=== PATIENT | male | born 1935 | race Caucasian/White ===

== ENCOUNTER 2017-03-17 14:50 | Emergency (ER) | payer MEDICARE, BC ==
[2017-03-17 15:01] VITALS: BP 145/67
[2017-03-17] MEDS ORDERED: Diphtheria,Pertussis(Acell),Tetanus Vaccine 0.5 ML SDV IM ONE (15:23)
[2017-03-17] MEDS ORDERED: Lidocaine 1% 10 ML MDV INJECT ONE (15:23)
[2017-03-17] MEDS ORDERED: Lidocaine 1% 30 ML SDV INJECT ONE (15:25)
--- NOTE | 2017-03-17 15:26 | EDM.PDOC ---
ED HPI GENERAL MEDICAL PROBLEM - General Chief Complaint: Laceration Stated Complaint: CUT TO PINKY ON LEFT HAND Time Seen by Provider: 03/17/17 15:23 Source of Information: Reports: Patient History Limitations: Reports: No Limitations - History of Present Illness INITIAL COMMENTS - FREE TEXT/NARRATIVE: 81 yo male presents with laceration in between fourth and fifth digit on left hand. Bleeding controlled. No other complaints. Onset: Today Location: Reports: Upper Extremity, Left Quality: Reports: Ache Severity: Mild Improves with: Reports: None Worsens with: Reports: None Context: Reports: Activity Left Hand Pain Score (Numeric/FACES): 5 - Related Data Allergies Allergy/AdvReac Type Severity Reaction Status Date / Time acetaminophen [From Tylox] Allergy Nausea and Verified 03/17/17 14:56 Vomiting cephalexin Allergy Diarrhea Verified 03/17/17 14:56 codeine Allergy Anxiety Verified 03/17/17 14:56 levofloxacin [From Levaquin] Allergy Hyperactivi Verified 03/17/17 14:56 ty oxycodone Allergy Rash Verified 03/17/17 14:56 Penicillins Allergy Rash Verified 03/17/17 14:56 Sulfa (Sulfonamide Allergy Blurred Verified 03/17/17 14:56 Antibiotics) Vision tramadol [From Ultram] Allergy Blurred Verified 03/17/17 14:56 Vision Home Meds: Home Meds Bisoprolol Fumarate/HCTZ [Ziac 2.5-6.25 MG] 1 tab PO BID 09/21/16 [History] Lisinopril 5 mg PO DAILY 09/21/16 [History] atorvaSTATin [Lipitor] 10 mg PO BID 09/21/16 [History] Past Medical History HEENT History: Reports: Impaired Vision Cardiovascular History: Reports: High Cholesterol, Hypertension - Past Surgical History Musculoskeletal Surgical History: Reports: Knee Replacement, Shoulder Replacement, Other (See Below) Social & Family History - Family History Family Medical History: Noncontributory - Tobacco Use Smoking Status *Q: Never Smoker Second Hand Smoke Exposure: No - Caffeine Use Caffeine Use: Reports: Coffee - Recreational Drug Use Recreational Drug Use: No ED ROS GENERAL - Review of Systems Review Of Systems: ROS reveals no pertinent complaints other than HPI. ED EXAM, SKIN/RASH Exam: See Below Exam Limited By: No Limitations General Appearance: Alert, WD/WN, No Apparent Distress Respiratory/Chest: No Respiratory Distress, Lungs Clear, Normal Breath Sounds, No Accessory Muscle Use, Chest Non-Tender Neurological: Alert, Oriented, Normal Cognition, Normal Gait, Normal Reflexes, No Motor/Sensory Deficits Skin: Warm, Dry, No Rash, Ecchymosis, Wound/Incision (2 cm laceration hager between 4th and 5th digit) Location, Skin: Palms Characteristics: Linear ED SKIN PROCEDURES - Laceration/Wound Repair Left Hand Appearance: Subcutaneous Distal NVT: Neuro & Vascular Intact Anesthetic Type: Local Local Anesthesia - Lidocaine (Xylocaine): 1% Plain Local Anesthetic Volume: Other (6cc) Skin Prep: Chlorhexidine (Hibiciens) Saline Irrigation (cc's): 30 Suture Size: 4-0 Suture Type: Interrupted, Simple Suture Size: 4-0 Repaired with: Vicryl Drain Placement: No Sterile Dressing Applied: None Tetanus Status Addressed: Yes Complications: No Course - Vital Signs Last Recorded V/S: Last Vital Signs Temp 97.7 F 03/17/17 14:58 Pulse 62 03/17/17 14:58 Resp 18 03/17/17 14:58 BP 145/67 H 03/17/17 14:58 Pulse Ox 98 03/17/17 14:58 - Orders/Labs/Meds Orders: Active Orders 24 hr Category Date Time Status Vaccines to be Administered [RC] PER UNIT ROUTINE Care 03/17/17 15:23 Active Meds: Medications Discontinued Medications Generic Name Dose Route Start Last Admin Trade Name Ragini PRN Reason Stop Dose Admin Diphtheria/Tetanus/Acell Pertussis 0.5 ml 03/17/17 15:23 03/17/17 15:27 Adacel IM 03/17/17 15:24 0.5 ml .ONCE ONE Administration Lidocaine HCl 10 ml 03/17/17 15:23 Xylocaine 1% INJECT 03/17/17 15:24 ONETIME ONE Lidocaine HCl 30 ml 03/17/17 15:25 03/17/17 15:30 Xylocaine-Mpf 1% INJECT 03/17/17 15:26 30 ml ONETIME ONE Administration Departure - Departure Time of Disposition: 16:35 Disposition: Home, Self-Care 01 Condition: Good Clinical Impression: Laceration - Discharge Information Instructions: Laceration Care, Adult, [id number] Forms: ED Department Discharge Additional Instructions: Take the antibiotic for 5 days. Kepp wound clean and dry. Return in 1 week to clinic for re-evaluation. return to ER for worsening symptoms. - My Orders Last 24 Hours: My Active Orders 03/17/17 15:23 Vaccines to be Administered [RC] PER UNIT ROUTINE - Assessment/Plan Last 24 Hours: My Active Orders 03/17/17 15:23 Vaccines to be Administered [RC] PER UNIT ROUTINE
== END 2017-03-17 16:44 | disposition home or self-care (01) ==
LOC: EEVIPCON 14:50 → DL.ED 14:50
DX: S61.412A Laceration without foreign body of left hand, initial encounter (principal); I10 Essential (primary) hypertension; Z88.1 Allergy status to other antibiotic agents; Z88.5 Allergy status to narcotic agent; Z88.0 Allergy status to penicillin; Z88.2 Allergy status to sulfonamides; E78.00 Pure hypercholesterolemia, unspecified; Z96.659 Presence of unspecified artificial knee joint; Z96.612 Presence of left artificial shoulder joint; Z79.899 Other long term (current) drug therapy; Z23 Encounter for immunization; W27.0XXA Contact with workbench tool, initial encounter
CPT/HCPCS: 12001; 90715; 99283

== ENCOUNTER 2017-07-22 16:54 | Observation (INO) | payer MEDICARE, BC ==
--- NOTE | 2017-07-22 17:10 | PCM.HP ---
H&P History of Present Illness - General Date of Service: 07/22/17 Admit Problem/Dx: chf, weakness Source of Information: Patient, Family - History of Present Illness Initial Comments - Free Text/Narative: the patient is an 82-year-old gentleman with a history of dyslipidemia, hypertension, multiple orthopedic problems involving The right hip bilateral shoulders. A few weeks ago the patient had a cold but has improved since. He still has the occasional nonproductive cough. In the past 4 weeks his balance was progressively getting worse. It was felt that this corresponded to medications that was started for his prostate and frequent urination. The patient was started on Myrbetrique and Flomax. The patient has been using cane and has been participating in outpatient physical therapy but he did not want to use a walker. The patient was seen by Dr. Paz and most of his medications including bisoprolol, hydrochlorothiazide, Flomax, Mirabegron was discontinued. The family actually feels that the patient has improved since these medication changes. On the day of admission chest x-ray was done that was prompted by the patient's cough. Congestive changes were noted there. The patient has a history of chronic lower extremity edema has been using compression stockings for that. the patient denies headache, lightheadedness, near syncopal symptoms. He did have a fall a few weeks ago that he thinks was due to unsteadiness and the cane. No focal motor deficit - Related Data Allergies/Adverse Reactions: Allergies Allergy/AdvReac Type Severity Reaction Status Date / Time acetaminophen [From Tylox] Allergy Nausea and Verified 07/22/17 17:14 Vomiting cephalexin Allergy Diarrhea Verified 07/22/17 17:14 codeine Allergy Anxiety Verified 07/22/17 17:14 diclofenac Allergy Itching Verified 07/22/17 17:18 hydrocodone Allergy Other Verified 07/22/17 17:18 levofloxacin [From Levaquin] Allergy Hyperactivi Verified 07/22/17 17:14 ty methylprednisolone Allergy Other Verified 07/22/17 17:18 misoprostol Allergy Itching Verified 07/22/17 17:18 nabumetone [From Relafen] Allergy Diarrhea Verified 07/22/17 17:18 oxycodone Allergy Rash Verified 07/22/17 17:18 Penicillins Allergy Rash Verified 07/22/17 17:18 pneumococcal vaccine Allergy Swelling Verified 07/22/17 17:18 Sulfa (Sulfonamide Allergy Blurred Verified 07/22/17 17:18 Antibiotics) Vision tramadol [From Ultram] Allergy Blurred Verified 07/22/17 17:18 Vision Home Medications: Home Meds Bisoprolol Fumarate/HCTZ [Ziac 2.5-6.25 MG] 1 tab PO DAILY 09/21/16 [History] Lisinopril 5 mg PO DAILY 09/21/16 [History] Ascorbic Acid [Vitamin C] 500 mg PO DAILY 07/22/17 [History] Calcium Carb & Citrate/Vit D3 [Citracal + D ER] 2 each PO DAILY 07/22/17 [ History] Cyanocobalamin (Vitamin B12) [Vitamin B13] 500 mcg PO DAILY 07/22/17 [History] Flaxseed Oil [Flax Oil] 1,000 mg PO DAILY 07/22/17 [History] Melatonin 5 mg PO BEDTIME 07/22/17 [History] Multivitamin [Multi-Vitamin Daily] 1 each PO DAILY 07/22/17 [History] Past Medical History HEENT History: Reports: Impaired Vision Cardiovascular History: Reports: High Cholesterol, Hypertension - Past Surgical History Musculoskeletal Surgical History: Reports: Knee Replacement, Shoulder Replacement, Other (See Below) Social & Family History - Family History Family Medical History: Noncontributory - Tobacco Use Smoking Status *Q: Never Smoker Second Hand Smoke Exposure: No - Caffeine Use Caffeine Use: Reports: Coffee - Recreational Drug Use Recreational Drug Use: No H&P Review of Systems - Review of Systems: Review Of Systems: See Below General: Reports: Weakness (generalized, has been sleeping a lot according to family). Denies: Fever, Chills Pulmonary: Denies: Shortness of Breath, Wheezing Cardiovascular: Reports: Edema. Denies: Chest Pain Gastrointestinal: Denies: Abdominal Pain, Nausea Genitourinary: Reports: Frequency, Urgency. Denies: Dysuria, Burning Psychiatric: Denies: Confusion Neurological: Denies: Dizziness, Headache, Numbness, Seizure, Syncope, Tingling Exam - Exam Exam: See Below - Exam Quality Assessment: No: Supplemental Oxygen General: Alert, Oriented Neck: Supple Lungs: Clear to Auscultation, Normal Respiratory Effort Cardiovascular: Regular Rate, Regular Rhythm GI/Abdominal Exam: Normal Bowel Sounds, Soft, Non-Tender Extremities: Pedal Edema (bilateral 1+) Skin: Warm, Dry - Patient Data Lab Results Last 24 hrs: laboratory results were reviewed from [facility] sodium was 1:30, potassium 4.3, creatinine 1.1 Liver enzymes unremarkable Troponin less than 0.02 urine analysis showed negative nitrate and negative leukocytes EKG per my reading shows sinus rhythm at the rate of [address] changes chest x-ray per my reading shows small bilateral pleural effusion with mild congestive heart failure *Q Meaningful Use (ADM) - VTE *Q VTE Criteria *Q: - Stroke *Q Stroke Criteria *Q: - AMI *Q AMI Criteria *Q: - Problem List (1) Weakness SNOMED Code(s): 30333649 ICD Code: R53.1 - WEAKNESS Status: Acute Current Visit: Yes (2) Acute congestive heart failure SNOMED Code(s): 25941567 ICD Code: I50.9 - HEART FAILURE, UNSPECIFIED Status: Acute Current Visit : Yes (3) Hypertension SNOMED Code(s): 05482641 ICD Code: I10 - ESSENTIAL (PRIMARY) HYPERTENSION Status: Acute Current Visit: Yes (4) Dyslipidemia SNOMED Code(s): 523488653 ICD Code: E78.5 - HYPERLIPIDEMIA, UNSPECIFIED Status: Acute Current Visit : Yes (5) Imbalance SNOMED Code(s): 385551668 ICD Code: R26.89 - OTHER ABNORMALITIES OF GAIT AND MOBILITY Status: Acute Current Visit: Yes Problem List Initiated/Reviewed/Updated: Yes Assessment/Plan Comment:: the patient presented with generalized weakness, unsteadiness. On chest x-ray congestive heart failure noted #1 generalized weakness, unsteadiness This does not appear to be related to a stroke Likely due to arthritis, right hip pain and shoulder pain. Will continue physical and occupational therapy is available. Will continue to hold the beta brina #2 acute congestive heart failure This appears to be mild, patient oxygen saturations are good. We will start the patient on Lasix. Monitor electrolytes The patient has chronic hyponatremia, will follow with the diuretics. fluid restriction and especially the later part of the day might help. Obtain echocardiogram when available for further characterization recheck a troponin in the morning #3 chronic hyponatremia We'll monitor #4 DVT prophylaxis will be with subcutaneous heparin discussed with Dr. Paz
[2017-07-22] MEDS ORDERED: Sodium Chloride 0.9% 10 ML Syringe FLUSH PRN (17:55)
[2017-07-22] MEDS ORDERED: Zolpidem 5 MG Tab PO PRN (17:55)
[2017-07-22] MEDS: Furosemide 40 MG Tab PO SCH (19:43)
[2017-07-22] MEDS: MELATONIN 5 MG PO SCH (21:53)
[2017-07-22] MEDS: Heparin Sodium 5,000 Units/ML Vial SUBCUT SCH (21:53)
[2017-07-23] MEDS: Heparin Sodium 5,000 Units/ML Vial SUBCUT SCH ×3 (06:16→21:35)
[2017-07-23 06:47] LABS: CHLORIDE,CL 94 mmol/L (101-111); SODIUM,NA 131 mmol/L (135-145)
[2017-07-23] MEDS: Furosemide 40 MG Tab PO SCH (09:54)
[2017-07-23] MEDS: Multivitamins,Therapeutic Tab PO SCH (09:54)
[2017-07-23] MEDS: Lisinopril 5 MG Tab PO SCH (09:55)
[2017-07-23] MEDS: SYSTANE LUBRICANT EYE EYEBOTH SCH (09:59)
--- NOTE | 2017-07-23 10:38 | PCM.PN ---
- General Info Date of Service: 07/23/17 Admission Dx/Problem (Free Text): chf, weakness Subjective Update: Feeling okay, no shortness of breath, no associated chest pain. Did not eat much breakfast. No abdominal pain. Did not get out of bed yet. - Review of Systems General: Reports: Weakness. Denies: Fever Pulmonary: Denies: Shortness of Breath Cardiovascular: Denies: Chest Pain Gastrointestinal: Denies: Abdominal Pain Genitourinary: Denies: Dysuria - Patient Data Vitals - Most Recent: Last Vital Signs Temp 36.3 C 07/23/17 06:51 Pulse 55 L 07/23/17 06:51 Resp 20 07/23/17 06:51 BP 121/57 L 07/23/17 09:55 Pulse Ox 97 07/23/17 06:51 Weight - Most Recent: 101.514 kg I&O - Last 24 Hours: Intake & Output 07/22/17 07/23/17 07/23/17 22:59 06:59 14:59 Intake Total 200 200 Output Total 875 1110 125 Balance -775 910 125 Lab Results Last 24 Hours: Laboratory Results - last 24 hr 07/22/17 07/23/17 07/23/17 Range/Units 17:50 06:10 06:10 WBC 5.7 4.1 L (5.0-10.0) 10^3/uL RBC 3.32 L 3.30 L (4.6-6.2) 10^6/uL Hgb 10.6 L 10.7 L (14.0-18.0) g/dL Hct 31.3 L 31.6 L (40.0-54.0) % MCV 94.3 95.8 (80-100) fL MCH 31.9 32.4 (27.0-34.0) pg MCHC 33.9 33.9 (33.0-35.0) g/dL Plt Count 239 238 (150-450) 10^3/uL Neut % (Auto) 62.8 55.0 (42.2-75.2) % Lymph % (Auto) 22.1 25.7 (20.5-50.1) % Zapata % (Auto) 12.8 H 15.4 H (2-8) % Eos % (Auto) 1.4 3.2 H (1.0-3.0) % Baso % (Auto) 0.9 0.7 (0.0-1.0) % Sodium 131 L (135-145) mmol/L Potassium 3.9 (3.6-5.0) mmol/L Chloride 94 L (101-111) mmol/L Carbon Dioxide 29.0 (21.0-31.0) mmol/L Anion Gap 11.9 BUN 13 (7-18) mg/dL Creatinine 0.9 (0.6-1.3) mg/dL Est Cr Clr Drug Dosing 67.25 mL/min Estimated GFR (MDRD) > 60 Glucose 85 (74-105) mg/dL Calcium 9.2 (8.4-10.2) mg/dl Troponin I 0.02 (0.00-0.02) ng/ml B-Natriuretic Peptide (0-100) pg/ml 07/23/17 Range/Units 06:10 WBC (5.0-10.0) 10^3/uL RBC (4.6-6.2) 10^6/uL Hgb (14.0-18.0) g/dL Hct (40.0-54.0) % MCV (80-100) fL MCH (27.0-34.0) pg MCHC (33.0-35.0) g/dL Plt Count (150-450) 10^3/uL Neut % (Auto) (42.2-75.2) % Lymph % (Auto) (20.5-50.1) % Zapata % (Auto) (2-8) % Eos % (Auto) (1.0-3.0) % Baso % (Auto) (0.0-1.0) % Sodium (135-145) mmol/L Potassium (3.6-5.0) mmol/L Chloride (101-111) mmol/L Carbon Dioxide (21.0-31.0) mmol/L Anion Gap BUN (7-18) mg/dL Creatinine (0.6-1.3) mg/dL Est Cr Clr Drug Dosing mL/min Estimated GFR (MDRD) Glucose (74-105) mg/dL Calcium (8.4-10.2) mg/dl Troponin I (0.00-0.02) ng/ml B-Natriuretic Peptide 358 H (0-100) pg/ml Rafiq Results Last 24 Hours: Microbiology 07/22/17 17:55 Anaerobic Blood Culture - Final Blood - Venous - Lab Draw Med Orders - Current: Current Medications Furosemide (Lasix) 40 mg PO DAILY [facility] Last Admin: 07/23/17 09:54 Dose: 40 mg Heparin Sodium (Porcine) (Heparin Sodium) 5,000 units SUBCUT Q8HR [facility] Last Admin: 07/23/17 06:16 Dose: 5,000 units Lisinopril (Prinivil) 5 mg PO DAILY [facility] Last Admin: 07/23/17 09:55 Dose: 5 mg Multivitamins (Thera) 1 each PO DAILY [facility] Last Admin: 07/23/17 09:54 Dose: 1 each Melatonin 5 Mg (Tablets Own Med) 0 mg PO BEDTIME [facility] Last Admin: 07/22/17 21:53 Dose: Not Given Systane Lubricant Eye Drops Own Med* * 0 each EYEBOTH DAILY [facility] Last Admin: 07/23/17 09:59 Dose: 1 each Potassium Chloride (Klor-Con 10) 20 meq PO WITHBREAKFAST [facility] Sodium Chloride (Saline Flush) 10 ml FLUSH ASDIRECTED PRN PRN Reason: Keep Vein Open Zolpidem Tartrate (Ambien) 5 mg PO BEDTIME PRN PRN Reason: Sleep - Exam Quality Assessment: No: Supplemental Oxygen General: Alert, Oriented Lungs: Clear to Auscultation, Normal Respiratory Effort Cardiovascular: Regular Rate GI/Abdominal Exam: Normal Bowel Sounds, Soft, Non-Tender Extremities: Pedal Edema (Trace, bilateral) Skin: Warm Neurological: No New Focal Deficit Psy/Mental Status: Alert, Normal Affect, Normal Mood - Problem List & Annotations (1) Weakness SNOMED Code(s): 55227104 Code(s): R53.1 - WEAKNESS Status: Acute Current Visit: Yes (2) Acute congestive heart failure SNOMED Code(s): 44955689 Code(s): I50.9 - HEART FAILURE, UNSPECIFIED Status: Acute Current Visit: Yes (3) Hypertension SNOMED Code(s): 29263178 Code(s): I10 - ESSENTIAL (PRIMARY) HYPERTENSION Status: Acute Current Visit: Yes (4) Dyslipidemia SNOMED Code(s): 298569631 Code(s): E78.5 - HYPERLIPIDEMIA, UNSPECIFIED Status: Acute Current Visit : Yes (5) Imbalance SNOMED Code(s): 247075681 Code(s): R26.89 - OTHER ABNORMALITIES OF GAIT AND MOBILITY Status: Acute Current Visit: Yes - Problem List Review Problem List Initiated/Reviewed/Updated: Yes - My Orders Last 24 Hours: My Active Orders 07/22/17 17:11 Blood Culture x2 Reflex Set [OM.PC] Stat 07/22/17 17:50 CULTURE BLOOD [BC] Stat 07/22/17 17:55 Up With Assistance [RC] ASDIRECTED CULTURE BLOOD [BC] Stat Sodium Chloride 0.9% [Saline Flush] 10 ml FLUSH ASDIRECTED PRN Zolpidem [Ambien] 5 mg PO BEDTIME PRN Peripheral IV Insertion Adult [OM.PC] Routine Saline Lock Insert [OM.PC] Routine Resuscitation Status Routine 07/22/17 17:58 Patient Status [ADT] Routine Oxygen Therapy [RC] PRN VTE/DVT Education [RC] PER UNIT ROUTINE Vital Signs [RC] 23,03,07,11,,19 07/22/17 18:00 Furosemide [Lasix] 40 mg PO DAILY 07/22/17 21:00 Melatonin [Melatonin] 0 mg PO BEDTIME 07/22/17 22:00 Heparin Sodium 5,000 units SUBCUT Q8HR 07/23/17 09:00 Lisinopril [Prinivil] 5 mg PO DAILY Multivitamins,Therapeutic [Thera] 1 each PO DAILY Non-Formulary Medication [NF Drug] 0 each EYEBOTH DAILY 07/23/17 13:00 Potassium Chloride [Klor-Con 10] 20 meq PO WITHBREAKFAST 07/24/17 05:15 BASIC METABOLIC PANEL,BMP [CHEM] AM 07/25/17 05:11 B-TYPE NATRIURETIC PEPTIDE,BNP [CHEM] AM (Cancelled) - Plan Plan:: the patient presented with generalized weakness, unsteadiness. On chest x-ray congestive heart failure noted #1 generalized weakness, unsteadiness This does not appear to be related to a stroke Likely due to arthritis, right hip pain and shoulder pain. Will continue physical and occupational therapy when it is available. Will continue to hold the beta brina Suggested to use walker rather than a cane #2 acute congestive heart failure This appears to be mild, patient oxygen saturations are good. We will start the patient on Lasix. Will add potassium supplement Monitor electrolytes The patient has chronic hyponatremia, will follow with the diuretics. fluid restriction, especially the later part of the day might help. Obtain echocardiogram when available for further characterization of the CHF #3 chronic hyponatremia stable We'll monitor #4 DVT prophylaxis will be with subcutaneous heparin Discussed with Dr. Paz today when he was visiting the patient.
[2017-07-23] MEDS: Potassium Chloride 10 MEQ Tab.ER PO SCH (12:43)
[2017-07-23] MEDS: MELATONIN 5 MG PO SCH (21:33)
[2017-07-24] MEDS: Heparin Sodium 5,000 Units/ML Vial SUBCUT SCH (05:54)
[2017-07-24 06:38] LABS: CHLORIDE,CL 94 mmol/L (101-111); SODIUM,NA 132 mmol/L (135-145)
[2017-07-24] MEDS: Potassium Chloride 10 MEQ Tab.ER PO SCH (08:27)
[2017-07-24] MEDS: Multivitamins,Therapeutic Tab PO SCH (09:19)
[2017-07-24] MEDS: Furosemide 40 MG Tab PO SCH (09:19)
[2017-07-24] MEDS: SYSTANE LUBRICANT EYE EYEBOTH SCH (09:20)
[2017-07-24] MEDS: Lisinopril 5 MG Tab PO SCH (09:20)
[2017-07-24 10:32] VITALS: BP 113/48
--- NOTE | 2017-07-24 11:11 | PCM.DCSUM1 ---
Discharge Summary - Hospital Course Free Text/Narrative:: the patient presented with generalized weakness, unsteadiness. On chest x-ray congestive heart failure noted #1 generalized weakness, unsteadiness This does not appear to be related to a stroke Likely due to arthritis, right hip pain and shoulder pain. Will continue with outpatient physical and occupational therapy Will continue to hold the beta brina Suggested to use walker rather than a cane Prescription for a walker was given For now hold the patient's beta brina and did not start an TARA inhibitor until the echo result is known See how he tolerates the diuretics. #2 acute congestive heart failure This appears to be mild, patient oxygen saturations are good. Did not require oxygen supplement. Started the patient on Lasix and potassium supplement The patient has chronic hyponatremia, that did not worsen with the diuretics. Plan to Obtain echocardiogram as outpatient for further characterization of the CHF #3 chronic hyponatremia stable - Discharge Data Discharge Date: 07/24/17 Discharge Disposition: Home, Self-Care 01 Condition: Good - Discharge Diagnosis/Problem(s) (1) Weakness SNOMED Code(s): 82880394 ICD Code: R53.1 - WEAKNESS Status: Acute Current Visit: Yes (2) Acute congestive heart failure SNOMED Code(s): 84637257 ICD Code: I50.9 - HEART FAILURE, UNSPECIFIED Status: Acute Current Visit : Yes Qualifiers: Congestive heart failure type: unspecified congestive heart failure type Qualified Code(s): I50.9 - Heart failure, unspecified (3) Hypertension SNOMED Code(s): 67087688 ICD Code: I10 - ESSENTIAL (PRIMARY) HYPERTENSION Status: Acute Current Visit: Yes Qualifiers: Hypertension type: essential hypertension Qualified Code(s): I10 - Essential (primary) hypertension (4) Dyslipidemia SNOMED Code(s): 846197207 ICD Code: E78.5 - HYPERLIPIDEMIA, UNSPECIFIED Status: Acute Current Visit : Yes (5) Imbalance SNOMED Code(s): 796105038 ICD Code: R26.89 - OTHER ABNORMALITIES OF GAIT AND MOBILITY Status: Acute Current Visit: Yes - Patient Instructions Diet: Heart Healthy Diet Activity: As Tolerated - Discharge Plan Prescriptions/Med Rec: Furosemide [Lasix] 40 mg PO DAILY #30 tablet Potassium Chloride [Klor-Con 10] 20 meq PO WITHBREAKFAST #30 tab.er Home Medications: Home Meds Lisinopril 5 mg PO DAILY 09/21/16 [History] Cyanocobalamin (Vitamin B12) [Vitamin B12] 500 mcg PO DAILY 07/22/17 [History] Melatonin 5 mg PO BEDTIME 07/22/17 [History] Multivitamin [Multi-Vitamin Daily] 1 each PO DAILY 07/22/17 [History] Furosemide [Lasix] 40 mg PO DAILY #30 tablet 07/24/17 [Rx] Potassium Chloride [Klor-Con 10] 20 meq PO WITHBREAKFAST #30 tab.er 07/24/17 [Rx ] Patient Handouts: Weakness, [id number], Heart Failure, [id number] Referrals: Karl Paz MD [Primary Care Provider] - (in 2-3 days) - Discharge Summary/Plan Comment DC Time >30 min.: No - Review of Systems General: Reports: Weakness. Denies: Fever Pulmonary: Denies: Shortness of Breath (Improved) Cardiovascular: Denies: Chest Pain, Palpitations Gastrointestinal: Denies: Abdominal Pain Neurological: Denies: Confusion - Patient Data Vitals - Most Recent: Last Vital Signs Temp 36.7 C 07/24/17 10:31 Pulse 68 07/24/17 10:31 Resp 20 07/24/17 10:31 BP 113/48 L 07/24/17 10:31 Pulse Ox 99 07/24/17 10:31 Weight - Most Recent: 100.607 kg I&O - Last 24 hours: Intake & Output 07/23/17 07/24/17 07/24/17 22:59 06:59 14:59 Intake Total 820 200 240 Output Total 500 405 Balance 320 -205 240 Lab Results - Last 24 hrs: Laboratory Results - last 24 hr 07/24/17 Range/Units 05:50 Sodium 132 L (135-145) mmol/L Potassium 3.8 (3.6-5.0) mmol/L Chloride 94 L (101-111) mmol/L Carbon Dioxide 28.0 (21.0-31.0) mmol/L Anion Gap 13.8 BUN 17 (7-18) mg/dL Creatinine 1.0 (0.6-1.3) mg/dL Est Cr Clr Drug Dosing 60.52 mL/min Estimated GFR (MDRD) > 60 Glucose 86 (74-105) mg/dL Calcium 9.1 (8.4-10.2) mg/dl TERRY Results - Last 24 hrs: Microbiology 07/22/17 17:55 Aerobic Blood Culture - Preliminary Blood - Venous - Lab Draw NO GROWTH AFTER 1 DAY Anaerobic Blood Culture - Final 07/22/17 17:50 Aerobic Blood Culture - Preliminary Blood - Venous NO GROWTH AFTER 1 DAY Anaerobic Blood Culture - Preliminary NO GROWTH AFTER 1 DAY Med Orders - Current: Current Medications Furosemide (Lasix) 40 mg PO DAILY [facility] Last Admin: 07/24/17 09:19 Dose: 40 mg Heparin Sodium (Porcine) (Heparin Sodium) 5,000 units SUBCUT Q8HR [facility] Last Admin: 07/24/17 05:54 Dose: 5,000 units Lisinopril (Prinivil) 5 mg PO DAILY [facility] Last Admin: 07/24/17 09:20 Dose: 5 mg Multivitamins (Thera) 1 each PO DAILY [facility] Last Admin: 07/24/17 09:19 Dose: 1 each Melatonin 5 Mg (Tablets Own Med) 0 mg PO BEDTIME [facility] Last Admin: 07/23/17 21:33 Dose: 5 mg Systane Lubricant Eye Drops Own Med* * 0 each EYEBOTH DAILY [facility] Last Admin: 07/24/17 09:20 Dose: 1 each Potassium Chloride (Klor-Con 10) 20 meq PO WITHBREAKFAST [facility] Last Admin: 07/24/17 08:27 Dose: 20 meq Sodium Chloride (Saline Flush) 10 ml FLUSH ASDIRECTED PRN PRN Reason: Keep Vein Open Zolpidem Tartrate (Ambien) 5 mg PO BEDTIME PRN PRN Reason: Sleep - Exam Quality Assessment: Denies: Supplemental Oxygen General: Reports: Alert, Oriented Lungs: Reports: Clear to Auscultation, Normal Respiratory Effort Cardiovascular: Reports: Regular Rate, Regular Rhythm Extremities: No Pedal Edema Psy/Mental Status: Reports: Alert, Normal Affect, Normal Mood *Q Meaningful Use (DIS) - VTE *Q VTE Criteria *Q: - Stroke *Q Stroke Criteria *Q: - AMI *Q AMI Criteria *Q:
== END 2017-07-24 13:40 | disposition home or self-care (01) ==
LOC: UNDOADMOB 16:56 → INTOOBSV 16:56 → DL.MS 16:56
PROVIDERS: ADMIT Internal Medicine; ATTEND Internal Medicine
DX: R53.1 Weakness (principal); E78.00 Pure hypercholesterolemia, unspecified; R26.89 Other abnormalities of gait and mobility; I11.0 Hypertensive heart disease with heart failure; I50.9 Heart failure, unspecified; E87.1 Hypo-osmolality and hyponatremia; M16.9 Osteoarthritis of hip, unspecified; M19.019 Primary osteoarthritis, unspecified shoulder; Z88.6 Allergy status to analgesic agent; Z88.1 Allergy status to other antibiotic agents; Z88.5 Allergy status to narcotic agent; Z88.0 Allergy status to penicillin; Z88.2 Allergy status to sulfonamides; Z88.7 Allergy status to serum and vaccine; Z88.8 Allergy status to other drugs, medicaments and biological substances; Z79.899 Other long term (current) drug therapy; Z96.649 Presence of unspecified artificial hip joint; Z96.619 Presence of unspecified artificial shoulder joint
CPT/HCPCS: 36415; 80048; 82962; 83880; 84484; 85025; 87040; A9270; J1644; 96372; 99217; 99220; 99225; G0378; G0379

== ENCOUNTER 2017-09-23 23:51 | Emergency (ER) | payer MEDICARE, BC ==
--- NOTE | 2017-09-23 23:58 | EDM.PDOC ---
ED HPI GENERAL MEDICAL PROBLEM - General Chief Complaint: Cardiovascular Problem Stated Complaint: HEART PAIN Time Seen by Provider: 09/23/17 23:54 Source of Information: Reports: Patient, Family History Limitations: Reports: No Limitations - History of Present Illness INITIAL COMMENTS - FREE TEXT/NARRATIVE: states pt started c/o "heart pain" since 9pm tonight, can't sleep, no appetite, gives h/o CHF. pt states feels sharp pain at left lower rib area everytime he takes deep breath denies coughing, no F/C Left Lower Chest Pain Score (Numeric/FACES): 5 - Related Data Allergies Allergy/AdvReac Type Severity Reaction Status Date / Time acetaminophen [From Tylox] Allergy Nausea and Verified 07/22/17 17:14 Vomiting cephalexin Allergy Diarrhea Verified 09/24/17 00:09 codeine Allergy Anxiety Verified 09/24/17 00:09 diclofenac Allergy Itching Verified 09/24/17 00:09 hydrocodone Allergy Other Verified 09/24/17 00:09 levofloxacin [From Levaquin] Allergy Hyperactivi Verified 09/24/17 00:09 ty methylprednisolone Allergy Other Verified 09/24/17 00:09 misoprostol Allergy Itching Verified 09/24/17 00:09 nabumetone [From Relafen] Allergy Diarrhea Verified 09/24/17 00:09 oxycodone Allergy Rash Verified 09/24/17 00:09 Penicillins Allergy Rash Verified 09/24/17 00:09 pneumococcal vaccine Allergy Swelling Verified 09/24/17 00:09 Sulfa (Sulfonamide Allergy Blurred Verified 09/24/17 00:09 Antibiotics) Vision tramadol [From Ultram] Allergy Blurred Verified 09/24/17 00:09 Vision Home Meds: Home Meds Lisinopril 5 mg PO DAILY 09/21/16 [History] Cyanocobalamin (Vitamin B12) [Vitamin B12] 500 mcg PO DAILY 07/22/17 [History] Melatonin 5 mg PO BEDTIME 07/22/17 [History] Multivitamin [Multi-Vitamin Daily] 1 each PO DAILY 07/22/17 [History] Furosemide [Lasix] 40 mg PO DAILY #30 tablet 07/24/17 [Rx] Potassium Chloride [Klor-Con 10] 20 meq PO WITHBREAKFAST #30 tab.er 07/24/17 [Rx ] Iron 65 mg PO DAILY 09/24/17 [History] Metoprolol Succinate 50 mg PO DAILY 09/24/17 [History] atorvaSTATin [Lipitor] 10 mg PO DAILY 09/24/17 [History] Past Medical History HEENT History: Reports: Impaired Vision Cardiovascular History: Reports: High Cholesterol, Hypertension - Past Surgical History Musculoskeletal Surgical History: Reports: Knee Replacement, Shoulder Replacement, Other (See Below) Social & Family History - Family History Family Medical History: Noncontributory - Tobacco Use Smoking Status *Q: Never Smoker Second Hand Smoke Exposure: No - Caffeine Use Caffeine Use: Reports: Coffee - Recreational Drug Use Recreational Drug Use: No ED ROS GENERAL - Review of Systems Review Of Systems: ROS reveals no pertinent complaints other than HPI. ED EXAM, GENERAL - Physical Exam Exam: See Below Exam Limited By: No Limitations General Appearance: Alert, WD/WN, Anxious, Mild Distress Ears: Hearing Grossly Normal Throat/Mouth: Normal Voice, No Airway Compromise Head: Atraumatic Neck: Non-Tender, Full Range of Motion Respiratory/Chest: No Respiratory Distress Cardiovascular: Regular Rate, Rhythm GI/Abdominal: Soft, Non-Tender Extremities: Pedal Edema, Other (2+) Neurological: Alert, Oriented, Normal Cognition, Normal Gait, No Motor/Sensory Deficits Psychiatric: Anxious, Flat Affect Skin Exam: Warm, Dry, Normal Color Lymphatic: No Adenopathy Course - Vital Signs Last Recorded V/S: Last Vital Signs Temp 36.3 C 09/23/17 23:56 Pulse 71 09/23/17 23:56 Resp 18 09/23/17 23:56 BP 109/53 L 09/24/17 00:24 Pulse Ox 98 09/23/17 23:56 - Orders/Labs/Meds Orders: Active Orders 24 hr Category Date Time Status EKG 12 Lead [EKG Documentation Completion] [RC] STAT Care 09/23/17 23:56 Active Labs: Laboratory Tests 09/23/17 09/23/17 09/23/17 Range/Units 00:00 00:00 00:00 WBC 6.3 (5.0-10.0) 10^3/uL RBC 3.13 L (4.6-6.2) 10^6/uL Hgb 9.7 L (14.0-18.0) g/dL Hct 29.4 L (40.0-54.0) % MCV 93.9 (80-100) fL MCH 31.0 (27.0-34.0) pg MCHC 33.0 (33.0-35.0) g/dL Plt Count 267 (150-450) 10^3/uL Neut % (Auto) 63.6 (42.2-75.2) % Lymph % (Auto) 23.4 (20.5-50.1) % [place] % (Auto) 11.8 H (2-8) % Eos % (Auto) 0.6 L (1.0-3.0) % Baso % (Auto) 0.6 (0.0-1.0) % D-Dimer, Quantitative 3280 H (0-400) ng/mL Sodium 135 (135-145) mmol/L Potassium 3.5 L (3.6-5.0) mmol/L Chloride 95 L (101-111) mmol/L Carbon Dioxide 27.0 (21.0-31.0) mmol/L Anion Gap 16.5 BUN 28 H (7-18) mg/dL Creatinine 1.0 (0.6-1.3) mg/dL Est Cr Clr Drug Dosing 59.61 mL/min Estimated GFR (MDRD) > 60 BUN/Creatinine Ratio 28.00 Glucose 102 (74-105) mg/dL Lactic Acid (0.5-2.2) mmol/L Calcium 9.0 (8.4-10.2) mg/dl Total Bilirubin 1.0 (0.2-1.0) mg/dL AST 61 H (10-42) IU/L ALT 38 (10-60) IU/L Alkaline Phosphatase 87 (42-121) IU/L Troponin I 0.04 H* (0.00-0.02) ng/ml B-Natriuretic Peptide 1260 H (0-100) pg/ml Total Protein 7.0 (6.7-8.2) g/dl Albumin 3.3 (3.2-5.5) g/dl Globulin 3.7 Albumin/Globulin Ratio 0.89 Urine Color (YELLOW) Urine Appearance (CLEAR) Urine pH (5.0-9.0) Ur Specific [place] (1.005-1.030) Urine Protein (NEGATIVE) Urine Glucose (UA) (NEGATIVE) Urine Ketones (NEGATIVE) Urine Occult Blood (NEGATIVE) Urine Nitrite (NEGATIVE) Urine Bilirubin (NEGATIVE) Urine Urobilinogen (0.2-1.0) mg/dL Ur Leukocyte Esterase (NEGATIVE) Urine RBC /HPF Urine WBC (0-5/HPF) /HPF Ur Epithelial Cells /HPF Urine Bacteria (0-FEW/HPF) /HPF Urine Mucus /LPF 09/24/17 09/24/17 Range/Units 00:00 01:10 WBC (5.0-10.0) 10^3/uL RBC (4.6-6.2) 10^6/uL Hgb (14.0-18.0) g/dL Hct (40.0-54.0) % MCV (80-100) fL MCH (27.0-34.0) pg MCHC (33.0-35.0) g/dL Plt Count (150-450) 10^3/uL Neut % (Auto) (42.2-75.2) % Lymph % (Auto) (20.5-50.1) % [place] % (Auto) (2-8) % Eos % (Auto) (1.0-3.0) % Baso % (Auto) (0.0-1.0) % D-Dimer, Quantitative (0-400) ng/mL Sodium (135-145) mmol/L Potassium (3.6-5.0) mmol/L Chloride (101-111) mmol/L Carbon Dioxide (21.0-31.0) mmol/L Anion Gap BUN (7-18) mg/dL Creatinine (0.6-1.3) mg/dL Est Cr Clr Drug Dosing mL/min Estimated GFR (MDRD) BUN/Creatinine Ratio Glucose (74-105) mg/dL Lactic Acid 1.2 (0.5-2.2) mmol/L Calcium (8.4-10.2) mg/dl Total Bilirubin (0.2-1.0) mg/dL AST (10-42) IU/L ALT (10-60) IU/L Alkaline Phosphatase (42-121) IU/L Troponin I (0.00-0.02) ng/ml B-Natriuretic Peptide (0-100) pg/ml Total Protein (6.7-8.2) g/dl Albumin (3.2-5.5) g/dl Globulin Albumin/Globulin Ratio Urine Color Yellow (YELLOW) Urine Appearance Clear (CLEAR) Urine pH 5.0 (5.0-9.0) Ur Specific [place] 1.015 (1.005-1.030) Urine Protein Trace H (NEGATIVE) Urine Glucose (UA) Negative (NEGATIVE) Urine Ketones Negative (NEGATIVE) Urine Occult Blood Trace-intact H (NEGATIVE) Urine Nitrite Negative (NEGATIVE) Urine Bilirubin Negative (NEGATIVE) Urine Urobilinogen 0.2 (0.2-1.0) mg/dL Ur Leukocyte Esterase Negative (NEGATIVE) Urine RBC 0-5 /HPF Urine WBC 0-5 (0-5/HPF) /HPF Ur Epithelial Cells Few /HPF Urine Bacteria Moderate H (0-FEW/HPF) /HPF Urine Mucus Moderate H /LPF Meds: Medications Discontinued Medications Generic Name Dose Route Start Last Admin Trade Name Ragiin PRN Reason Stop Dose Admin Iopamidol 100 ml 09/24/17 00:44 09/24/17 01:02 Isovue-370 (76%) IVPUSH 09/24/17 00:45 100 ml ONETIME ONE Administration Morphine Sulfate 2 mg 09/24/17 00:25 09/24/17 00:37 Morphine IVPUSH 09/24/17 00:26 2 mg ONETIME ONE Administration Nitroglycerin 0.4 mg 09/24/17 00:19 09/24/17 00:24 Nitrostat SL 09/24/17 00:20 Not Given ONETIME ONE Ondansetron HCl 4 mg 09/24/17 00:25 09/24/17 00:31 Zofran IV 09/24/17 00:26 4 mg ONETIME ONE Administration - Re-Assessments/Exams Free Text/Narrative Re-Assessment/Exam: 09/24/17 02:[address] Jackman @ who kindly accepted pt Departure - Departure Time of Disposition: 02:07 Disposition: DC/Tfer to Acute Hospital 02 Reason for Transfer *Q: Other Condition: Good Clinical Impression: Pleural effusion, Pericardial effusion, Elevated troponin I level, Elevated d- dimer, Elevated brain natriuretic peptide (BNP) level Acute congestive heart failure Qualifiers: Congestive heart failure type: unspecified congestive heart failure type Qualified Code(s): I50.9 - Heart failure, unspecified Forms: Interfacility Transfer EMTALA - My Orders Last 24 Hours: My Active Orders 09/23/17 23:56 EKG 12 Lead [EKG Documentation Completion] [RC] STAT - Assessment/Plan Last 24 Hours: My Active Orders 09/23/17 23:56 EKG 12 Lead [EKG Documentation Completion] [RC] STAT
[2017-09-24] MEDS ORDERED: Nitroglycerin 0.4 MG Tab.SL SL ONE (00:19)
[2017-09-24 00:24] VITALS: BP 109/53
[2017-09-24] MEDS ORDERED: Morphine 2 MG/ML Syringe IVPUSH ONE (00:25)
[2017-09-24] MEDS ORDERED: Ondansetron 4 MG/2 ML SDV IV ONE (00:25)
[2017-09-24 00:33] LABS: ANION GAP 16.5; CHLORIDE,CL 95 mmol/L (101-111); SODIUM,NA 135 mmol/L (135-145)
[2017-09-24] MEDS ORDERED: Iopamidol 755 Mg/ML 100 ML Bottle IVPUSH ONE (00:44)
--- NOTE | 2017-09-27 13:52 | EKG ---
09/23/2017- BRINA HONG - EKG per my reading shows sinus rhythm at a rate of 74. [facility] /[id number]
== END 2017-09-24 02:43 ==
LOC: DL.ED 23:51
DX: I11.0 Hypertensive heart disease with heart failure (principal); I50.9 Heart failure, unspecified; I31.3 Pericardial effusion (noninflammatory); J90 Pleural effusion, not elsewhere classified; E78.00 Pure hypercholesterolemia, unspecified; R79.89 Other specified abnormal findings of blood chemistry; Z88.1 Allergy status to other antibiotic agents; Z88.5 Allergy status to narcotic agent; Z88.0 Allergy status to penicillin; Z88.2 Allergy status to sulfonamides; Z88.8 Allergy status to other drugs, medicaments and biological substances; Z79.899 Other long term (current) drug therapy
CPT/HCPCS: 36415; 71260; 80053; 81001; 83605; 83880; 84484; 85025; 85379; 93005; 96374; 96375; 99285; J2270; J2405; Q9967; 93010; 99284

== ENCOUNTER 2017-11-16 07:57 | Day surgery (SDC) | payer MEDICARE, BC ==
[~2017-11-16 07:57] MED LIST: Midazolam 1 MG/ML 2 ML SDV ONE; fentaNYL 100 MCG/2 ML SDV ONE
[2017-11-16] MEDS ORDERED: Midazolam 1 MG/ML 2 ML SDV IV ONE (07:58)
[2017-11-16] MEDS ORDERED: fentaNYL 100 MCG/2 ML SDV IV ONE (07:58)
[2017-11-16] MEDS ORDERED: Lidocaine 2% Viscous Solution 15 ML Cup ONE (08:12)
[2017-11-16] MEDS ORDERED: Benzocaine 20% Oral Spray 59.2 ML Canister ONE (08:13)
[2017-11-16] MEDS: Lactated Ringers 1,000 ML IV SCH (08:25)
[2017-11-16] MEDS: Midazolam 1 MG/ML 2 ML SDV IV ONE (08:42)
[2017-11-16] MEDS: Benzocaine 20% Oral Spray 59.2 ML Canister MUCMEM ONE (08:44)
[2017-11-16] MEDS: fentaNYL 100 MCG/2 ML SDV IV ONE ×2 (08:49→08:55)
--- NOTE | 2017-11-16 11:33 | OR ---
DATE: 11/16/2017 PREOPERATIVE DIAGNOSES: History of anemia and need for anticoagulation. POSTOPERATIVE DIAGNOSES: History of anemia and need for anticoagulation. PROCEDURES: Esophagogastroduodenoscopy and total colonoscopy. ANESTHESIA: Conscious sedation with IV Versed and fentanyl. SPECIMEN: None. OPERATIVE FINDINGS: EGD normal. Colon shows extensive sigmoid diverticulosis, otherwise, normal. RECOMMENDATION: This patient does not appear to have any sites that would be bleeding if he is placed back on his anticoagulation; iy should be safe enough to do that. His anemia is probably [id number] and not bleeding. INDICATION FOR PROCEDURE: This 82-year-old male was referred for colonoscopy secondary to having anemia after being placed on anticoagulation for his heart. He has had a workup that probably shows iron deficiency or B12 anemia, but prior to restarting him on his anticoagulation, it has been requested to have endoscopy. PROCEDURE IN DETAIL: After adequate preparation, a gastroscope was inserted into the esophagus. This was passed down to the distal esophagus. It shows no evidence of reflux or ulcerations. The scope was advanced into the stomach. Both forward and retroflexed views were done and are normal. The scope was advanced through the pylorus; and the first, second, and third part of the duodenum were also normal. I did not identify any abnormal growths, ulcerations, or bleeding sites. Air was suctioned from the stomach, and a colonoscope was then inserted into the rectum. This was easily passed all the way to the cecum. Confirmation of the cecum was made by visualization of the ileocecal valve, the appendiceal opening, and palpation in the right lower quadrant. The bowel prep was very good. Photographs of the colon were taken. On withdrawal of the scope, he has no masses, polyps, bleeding sites, or colitis, but does have extensive sigmoid diverticulosis. Rectal examination is also normal. Air was suctioned from the colon, and the scope was removed. [facility] /[id number]
[2017-11-16 11:52] VITALS: BP 110/48
== END 2017-11-16 11:10 | disposition home or self-care (01) ==
LOC: DL.ENDO 07:57
PROVIDERS: ATTEND Surgery
DX: K57.30 Diverticulosis of large intestine without perforation or abscess without bleeding (principal); I10 Essential (primary) hypertension; G47.30 Sleep apnea, unspecified; I48.91 Unspecified atrial fibrillation; Z79.01 Long term (current) use of anticoagulants; Z79.899 Other long term (current) drug therapy
CPT/HCPCS: 43235; 45378; J2250; J3010; J7120

== ENCOUNTER 2022-08-05 12:56 | Observation (INO) | payer MEDICARE, BC ==
[2022-08-05] MEDS ORDERED: Sodium Chloride 0.9% 10 ML Syringe FLUSH PRN (14:04)
[2022-08-05] MEDS ORDERED: Albuterol/Ipratropium 3.0-0.5 MG/3 ML Neb Soln NEB PRN (14:04)
[2022-08-05] MEDS ORDERED: Polyethylene Glycol 3350 Powder 17 GM Packet PO PRN (14:04)
[2022-08-05] MEDS ORDERED: Acetaminophen 325 MG Tab PO PRN (14:04)
[2022-08-05] MEDS ORDERED: Magnesium Hydroxide 400 MG/5 ML Susp 30 ML Cup PO PRN (14:04)
[2022-08-05] MEDS ORDERED: Ondansetron 4 MG/2 ML SDV IVPUSH PRN (14:04)
[2022-08-05] MEDS ORDERED: Nystatin Topical Powder 30 GM Bottle TOP PRN (21:00)
[2022-08-05] MEDS: Sodium Chloride 0.9% 10 ML Syringe FLUSH SCH (22:15)
[2022-08-05] MEDS ORDERED: LORazepam 0.5 MG Tab PO PRN (23:19)
[2022-08-05] MEDS ORDERED: Acetaminophen 500 MG Tab PO PRN (23:37)
[2022-08-05] MEDS ORDERED: Carboxymethylcellulose Sodium 1% Ophth Gel 0.4 ML UD EYEBOTH PRN (23:37)
[2022-08-06] MEDS ORDERED: QUEtiapine 25 MG Tab PO ONE (00:15)
[2022-08-06] MEDS ORDERED: Pantoprazole 40 MG Tab.CR PO SCH (06:00)
[2022-08-06 07:18] LABS: ANION GAP 10.7 mEq/L (7-13)
[2022-08-06] MEDS ORDERED: Potassium Chloride 10 MEQ Tab.ER PO SCH (08:00)
[2022-08-06] MEDS: Sodium Chloride 0.9% 10 ML Syringe FLUSH SCH (08:25)
[2022-08-06] MEDS ORDERED: Memantine 10 MG Tab PO SCH (09:00)
[2022-08-06] MEDS ORDERED: Multivitamin Tab PO SCH (09:00)
[2022-08-06] MEDS ORDERED: Cyanocobalamin (Vitamin B12) 100 MCG Tab PO SCH (09:00)
[2022-08-06] MEDS ORDERED: Citalopram 20 MG Tab PO SCH (09:00)
[2022-08-06 09:01] VITALS: BP 128/57; PULSE 65
[2022-08-06] MEDS ORDERED: Warfarin 2.5 MG Tab PO ONE (14:00)
[2022-08-06] MEDS ORDERED: Warfarin 5 MG Tab PO SCH (14:00)
[2022-08-06] MEDS ORDERED: Melatonin 3 MG Tab PO SCH (21:00)
[2022-08-06] MEDS ORDERED: atorvaSTATin 10 MG Tab PO SCH (21:00)
[2022-08-06] MEDS ORDERED: QUEtiapine 25 MG Tab PO SCH ×3 (21:00)
[2022-08-07] MEDS ORDERED: Warfarin 5 MG Tab PO SCH (14:00)
== END 2022-08-06 14:58 | disposition swing bed (61) ==
LOC: DL.MS 12:56
PROVIDERS: ADMIT Internal Medicine; ATTEND Internal Medicine
DX: H90.42 Sensorineural hearing loss, unilateral, left ear, with unrestricted hearing on the contralateral side (principal); I11.0 Hypertensive heart disease with heart failure; I50.9 Heart failure, unspecified; I27.20 Pulmonary hypertension, unspecified; I48.0 Paroxysmal atrial fibrillation; G47.33 Obstructive sleep apnea (adult) (pediatric); N40.0 Benign prostatic hyperplasia without lower urinary tract symptoms; F41.9 Anxiety disorder, unspecified; E66.9 Obesity, unspecified; R53.1 Weakness; E78.00 Pure hypercholesterolemia, unspecified; Z79.01 Long term (current) use of anticoagulants; Z79.899 Other long term (current) drug therapy; Z96.659 Presence of unspecified artificial knee joint; Z96.619 Presence of unspecified artificial shoulder joint; Z98.890 Other specified postprocedural states; Z87.891 Personal history of nicotine dependence; Z20.822 Contact with and (suspected) exposure to COVID-19
CPT/HCPCS: 36415; 70450; 80053; 81001; 82306; 83735; 84439; 84443; 85025; 85610; 97161-GP; 97165-GO; 99219; 99238; A9270-GY; G0378; G0379; J3490; U0002

== ENCOUNTER 2022-08-06 11:46 | Inpatient (IN) | payer SELFPAY ==
[2022-08-06] MEDS ORDERED: Acetaminophen 325 MG Tab PO PRN (14:47)
[2022-08-06] MEDS ORDERED: Acetaminophen 500 MG Tab PO PRN (14:47)
[2022-08-06] MEDS ORDERED: Magnesium Hydroxide 400 MG/5 ML Susp 30 ML Cup PO PRN (14:47)
[2022-08-06] MEDS ORDERED: Nystatin Topical Powder 30 GM Bottle TOP PRN (14:47)
[2022-08-06] MEDS ORDERED: Albuterol/Ipratropium 3.0-0.5 MG/3 ML Neb Soln NEB PRN (14:47)
[2022-08-06] MEDS ORDERED: Ondansetron 4 MG/2 ML SDV IVPUSH PRN (14:47)
[2022-08-06] MEDS ORDERED: Carboxymethylcellulose Sodium 1% Ophth Gel 0.4 ML UD EYEBOTH PRN (14:47)
[2022-08-06] MEDS ORDERED: Sodium Chloride 0.9% 10 ML Syringe FLUSH PRN ×2 (14:47)
[2022-08-06] MEDS ORDERED: Polyethylene Glycol 3350 Powder 17 GM Packet PO PRN (14:47)
[2022-08-06] MEDS ORDERED: LORazepam 0.5 MG Tab PO PRN (20:00)
[2022-08-06] MEDS ORDERED: Melatonin 3 MG Tab PO SCH (21:00)
[2022-08-06] MEDS: ATORVASTATIN 10 MG PO SCH (21:38)
[2022-08-06] MEDS: QUEtiapine 25 MG Tab PO SCH (21:41)
[2022-08-06] MEDS: Sodium Chloride 0.9% 10 ML Syringe FLUSH SCH ×2 (21:41→22:14)
[2022-08-07] MEDS: Pantoprazole 40 MG Tab.CR PO SCH (05:55)
[2022-08-07] MEDS ORDERED: Potassium Chloride 10 MEQ Tab.ER PO SCH (08:00)
[2022-08-07] MEDS ORDERED: Non-Formulary Medication 1 Each (Propylene Glycol/Peg 400 [Systane Liquid Gel Eye Drops] 1 EYEBOTH PRN (08:16)
[2022-08-07] MEDS ORDERED: LORazepam 0.5 MG Tab PO PRN (08:16)
[2022-08-07] MEDS ORDERED: Warfarin 5 MG Tab PO SCH ×2 (08:30)
[2022-08-07] MEDS ORDERED: Citalopram 20 MG Tab PO SCH (09:00)
[2022-08-07] MEDS ORDERED: Memantine 10 MG Tab PO SCH (09:00)
[2022-08-07] MEDS ORDERED: CYANOCOBALAMIN 500 MCG PO SCH (09:00)
[2022-08-07] MEDS ORDERED: Non-Formulary Medication 1 Each (Multivitamin [Multi-Vitamin Daily] 1 EACH Tablet) PO SCH (09:00)
[2022-08-07] MEDS: Multivitamin Tab PO SCH (09:54)
[2022-08-07] MEDS: Cyanocobalamin (Vitamin B12) 100 MCG Tab PO SCH (09:54)
[2022-08-07] MEDS ORDERED: Warfarin 2.5 MG Tab PO ONE (14:15)
[2022-08-07] MEDS: Carvedilol 6.25 MG Tab PO SCH (17:41)
[2022-08-07] MEDS: QUEtiapine 25 MG Tab PO SCH (20:49)
[2022-08-07] MEDS: Melatonin 3 MG Tab PO SCH (20:49)
[2022-08-07] MEDS: ATORVASTATIN 10 MG PO SCH (20:50)
[2022-08-07] MEDS ORDERED: atorvaSTATin 10 MG Tab PO SCH (21:00)
[2022-08-08] MEDS: Pantoprazole 40 MG Tab.CR PO SCH (05:43)
[2022-08-08] MEDS ORDERED: Furosemide 40 MG Tab PO SCH (08:00)
[2022-08-08] MEDS ORDERED: Potassium Chloride 10 MEQ Tab.ER PO SCH (08:00)
[2022-08-08] MEDS: Cyanocobalamin (Vitamin B12) 100 MCG Tab PO SCH (08:30)
[2022-08-08] MEDS: Carvedilol 6.25 MG Tab PO SCH ×2 (08:30→17:52)
[2022-08-08] MEDS: Multivitamin Tab PO SCH (08:31)
[2022-08-08] MEDS: Furosemide 20 MG Tab **OWN MED PO SCH (08:32)
[2022-08-08] MEDS: Potassium Chloride 10 MEQ Tab.ER **OWN MED PO SCH (08:32)
[2022-08-08] MEDS ORDERED: Warfarin 5 MG Tab PO ONE (14:00)
[2022-08-08] MEDS: Melatonin 3 MG Tab PO SCH (20:31)
[2022-08-08] MEDS: QUEtiapine 25 MG Tab PO SCH (20:31)
[2022-08-08] MEDS: ATORVASTATIN 10 MG PO SCH (20:32)
[2022-08-09] MEDS: Pantoprazole 40 MG Tab.CR PO SCH (06:41)
[2022-08-09 07:00] LABS: ANION GAP 9.4 mEq/L (7-13)
[2022-08-09] MEDS: Carvedilol 6.25 MG Tab PO SCH (08:38)
[2022-08-09] MEDS: Cyanocobalamin (Vitamin B12) 100 MCG Tab PO SCH (08:41)
[2022-08-09] MEDS: Multivitamin Tab PO SCH (08:42)
[2022-08-09] MEDS: Furosemide 20 MG Tab **OWN MED PO SCH (08:44)
[2022-08-09] MEDS: Potassium Chloride 10 MEQ Tab.ER **OWN MED PO SCH (08:45)
[2022-08-09 12:20] VITALS: BP 112/56; PULSE 60
[2022-08-09] MEDS ORDERED: Warfarin 5 MG Tab PO ONE (14:00)
== END 2022-08-09 15:08 | disposition home or self-care (01) | DRG 948 ==
LOC: DL.MS 15:05 → UNDOADMIN 15:05
PROVIDERS: ADMIT Internal Medicine; ATTEND Internal Medicine
DX: R53.81 Other malaise (principal); I50.32 Chronic diastolic (congestive) heart failure; F02.818 Dementia in other diseases classified elsewhere, unspecified severity, with other behavioral disturbance; I11.0 Hypertensive heart disease with heart failure; N40.1 Benign prostatic hyperplasia with lower urinary tract symptoms; R39.15 Urgency of urination; D63.8 Anemia in other chronic diseases classified elsewhere; F41.9 Anxiety disorder, unspecified; L30.9 Dermatitis, unspecified; G47.33 Obstructive sleep apnea (adult) (pediatric); I27.20 Pulmonary hypertension, unspecified; R42 Dizziness and giddiness; R00.1 Bradycardia, unspecified; H90.5 Unspecified sensorineural hearing loss; E78.00 Pure hypercholesterolemia, unspecified; K57.90 Diverticulosis of intestine, part unspecified, without perforation or abscess without bleeding; G30.9 Alzheimer's disease, unspecified; Z96.659 Presence of unspecified artificial knee joint; Z96.619 Presence of unspecified artificial shoulder joint; R26.81 Unsteadiness on feet; Z79.01 Long term (current) use of anticoagulants; Z87.891 Personal history of nicotine dependence; Z88.1 Allergy status to other antibiotic agents; Z88.5 Allergy status to narcotic agent; Z88.2 Allergy status to sulfonamides; Z88.8 Allergy status to other drugs, medicaments and biological substances; Z79.899 Other long term (current) drug therapy
CPT/HCPCS: 36415; 80048; 85610; 97161-GP; 99305; 99315; A9270-GY; J3490

== ENCOUNTER 2023-09-02 02:22 | Inpatient (IN) | payer MEDICARE, BC ==
[2023-09-02 02:45] LABS: BASOPHILS PERCENT AUTO 0.6 % (0.0-1.0); EOSINOPHILS PERCENT AUTO 0.8 % (1.0-3.0); HEMATOCRIT 37.4 % (40.0-54.0); HEMOGLOBIN 12.1 g/dL (14.0-18.0); LYMPHOCYTES PERCENT AUTO 7.5 % (20.5-50.1); MEAN CORPUSCULAR HEMOGLOBIN 31.7 pg (27.0-34.0); MEAN CORPUSCULAR HGB CONC 32.4 g/dL (33.0-35.0); MEAN CORPUSCULAR VOLUME 97.9 fL (80-100); MONOCYTES PERCENT AUTO 9.9 % (2-8); NEUTROPHILS PERCENT AUTO 81.2 % (42.2-75.2); PLATELET COUNT,PLT 244 10^3/uL (150-450); RED BLOOD CELL COUNT 3.82 10^6/uL (4.6-6.2); WHITE BLOOD CELL COUNT,WBC 5.1 10^3/uL (5.0-10.0)
[2023-09-02 03:04] LABS: A/G RATIO 0.9; ALANINE AMINOTRANSFERASE,ALT 29 U/L (16-63); ALBUMIN 3.5 g/dL (3.4-5.0); ALKALINE PHOSPHATASE 95 U/L (46-116); ANION GAP 13.3 mEq/L (7-13); ASPARTATE AMNIOTRANSFERASE,AST 39 U/L (15-37); BILIRUBIN TOTAL 0.7 mg/dL (0.2-1.0); BLOOD UREA NITROGEN,BUN 23 mg/dL (7-18); C-REACTIVE PROTEIN 0.92 ng/dL (<=0.50); CARBON DIOXIDE,CO2 30 mmol/L (21-32); CHLORIDE,CL 101 mmol/L (98-107); CREATININE 1.21 mg/dL (0.70-1.30); GLUCOSE RANDOM 103 mg/dL (70-99); POTASSIUM,K 4.3 mmol/L (3.5-5.1); PROTEIN TOTAL,TP 7.5 g/dL (6.4-8.2); SODIUM,NA 140 mmol/L (136-145)
[2023-09-02 03:05] LABS: LACTIC ACID 1.3 mmol/L (0.4-2.0)
[2023-09-02 03:06] LABS: ESTIMATED GFR 57 mL/min (>=60)
[2023-09-02 03:07] LABS: APPEARANCE,URINE CLEAR (CLEAR); BILIRUBIN,URINE NEGATIVE (NEGATIVE); COLOR,URINE YELLOW (YELLOW); GLUCOSE,URINE NEGATIVE (NEGATIVE); KETONES,URINE NEGATIVE (NEGATIVE); LEUKOCYTE ESTERASE,URINE NEGATIVE (NEGATIVE); NITRITE,URINE NEGATIVE (NEGATIVE); OCCULT BLOOD,URINE MODERATE (NEGATIVE); PROTEIN,URINE TRACE (NEGATIVE); UROBILINOGEN,URINE 0.2 mg/dL (0.2-1.0)
[2023-09-02 03:14] LABS: INR 2.6 (0.9-1.2); PROTHROMBIN TIME 26.2 SEC (9.0-12.0); PTT,PARTIAL THROMBOPLSTIN TIME 36.8 SEC (22.0-34.0)
[2023-09-02 03:19] LABS: BACTERIA,URINE FEW /HPF (0-FEW/HPF); MUCUS,URINE FEW /LPF (NOT SEEN); RBC,URINE 50-75 /HPF (0-5); WBC,URINE 0-5 /HPF (0-5/HPF)
[2023-09-02 03:20] LABS: INFLUENZA A NAA NEGATIVE (NEGATIVE); INFLUENZA B NAA NEGATIVE (NEGATIVE); RESPIRATORY SYNCYTIAL VIR NAA NEGATIVE (NEGATIVE)
[2023-09-02 03:45] LABS: CORONAVIRUS COVID-19 NAA POSITIVE (NEGATIVE)
[2023-09-02] MEDS ORDERED: Docusate Sodium 100 MG Cap PO PRN (06:28)
[2023-09-02] MEDS ORDERED: Ondansetron 4 MG Tab.DIS PO PRN (06:28)
[2023-09-02] MEDS ORDERED: Acetaminophen/HYDROcodone 325-5 MG Tab PO PRN (06:28)
[2023-09-02] MEDS ORDERED: Albuterol/Ipratropium 3.0-0.5 MG/3 ML Neb Soln NEB PRN (06:28)
[2023-09-02] MEDS ORDERED: Sodium Chloride 0.9% 1,000 ML IV SCH (06:30)
[2023-09-02] MEDS ORDERED: Polyvinyl Alcohol 1.4% Ophth Soln 15 ML Bottle EYEBOTH PRN (06:39)
[2023-09-02] MEDS ORDERED: LORazepam 0.5 MG Tab PO PRN (06:39)
[2023-09-02] MEDS ORDERED: REMDESIVIR 200 MG in Sodium Chloride 0.9% 250 ML IV ONE (07:30)
[2023-09-02] MEDS ORDERED: Memantine 10 MG Tab PO SCH (09:00)
[2023-09-02] MEDS: Azithromycin 500 MG in Sodium Chloride 0.9% 250 ML IV SCH (10:30)
[2023-09-02] MEDS: Warfarin 2.5 MG Tab PO SCH (14:19)
[2023-09-02] MEDS: Memantine 10 MG Tab PO SCH (14:19)
[2023-09-02] MEDS: Furosemide 20 MG Tab PO SCH (14:19)
[2023-09-02] MEDS: Citalopram 20 MG Tab PO SCH (14:20)
[2023-09-02] MEDS: Potassium Chloride 10 MEQ Tab.ER PO SCH (14:20)
[2023-09-02] MEDS: Acetaminophen 325 MG Tab PO PRN ×2 (14:20→20:32)
[2023-09-02] MEDS: Carvedilol 3.125 MG Tab PO SCH ×2 (14:21→20:41)
[2023-09-02] MEDS: QUEtiapine 25 MG Tab PO SCH (20:30)
[2023-09-02] MEDS ORDERED: Nystatin Topical Powder 30 GM Bottle TOP PRN (20:38)
[2023-09-02] MEDS ORDERED: Non-Formulary Medication 1 Each (Melatonin [Melatonin] 5 MG Tablet) PO SCH (21:00)
[2023-09-02] MEDS: Nystatin Topical Powder 60 GM Bottle TOP PRN (23:10)
[2023-09-03] MEDS: Azithromycin 500 MG in Sodium Chloride 0.9% 250 ML IV SCH (06:32)
[2023-09-03 06:41] LABS: HEMATOCRIT 33.3 % (40.0-54.0); MEAN CORPUSCULAR HEMOGLOBIN 32.7 pg (27.0-34.0); MEAN CORPUSCULAR VOLUME 99.1 fL (80-100); PLATELET COUNT,PLT 183 10^3/uL (150-450); RED BLOOD CELL COUNT 3.36 10^6/uL (4.6-6.2); WHITE BLOOD CELL COUNT,WBC 3.9 10^3/uL (5.0-10.0)
[2023-09-03 06:45] LABS: BASOPHILS PERCENT AUTO 0.5 % (0.0-1.0); EOSINOPHILS PERCENT AUTO 0.3 % (1.0-3.0); LYMPHOCYTES PERCENT AUTO 13.8 % (20.5-50.1); MONOCYTES PERCENT AUTO 21.8 % (2-8); NEUTROPHILS PERCENT AUTO 63.6 % (42.2-75.2)
[2023-09-03 07:00] LABS: LYMPHOCYTES PERCENT MAN 11 % (20-50); MONOCYTES PERCENT MAN 17 % (2-8); SEG NEUTROPHILS PERCENT MAN 72 % (42-75)
[2023-09-03 07:02] LABS: ANION GAP 10.6 mEq/L (7-13); BILIRUBIN DIRECT 0.1 mg/dL (0.0-0.2); BILIRUBIN TOTAL 0.6 mg/dL (0.2-1.0); BUN/CREATININE RATIO 17.4 (No establ ref range); CALCIUM 8.2 mg/dL (8.5-10.1); CREATININE 1.09 mg/dL (0.70-1.30); EST CRCL DRUG DOSING (CG) 50.43 mL/min; POTASSIUM,K 3.6 mmol/L (3.5-5.1); PROTEIN TOTAL,TP 6.4 g/dL (6.4-8.2)
[2023-09-03 07:06] LABS: A/G RATIO 0.88
[2023-09-03 07:19] LABS: PROTHROMBIN TIME 19.7 SEC (9.0-12.0)
[2023-09-03] MEDS: REMDESIVIR 100 MG in Sodium Chloride 0.9% 100 ML IV SCH (09:39)
[2023-09-03] MEDS: Potassium Chloride 10 MEQ Tab.ER PO SCH (09:41)
[2023-09-03] MEDS: Acetaminophen 325 MG Tab PO PRN (09:42)
[2023-09-03] MEDS: Memantine 10 MG Tab PO SCH (09:42)
[2023-09-03] MEDS: Furosemide 20 MG Tab PO SCH (09:42)
[2023-09-03] MEDS: Citalopram 20 MG Tab PO SCH (09:42)
[2023-09-03] MEDS: Carvedilol 3.125 MG Tab PO SCH ×2 (09:43→21:28)
[2023-09-03] MEDS: Warfarin 5 MG Tab PO SCH (14:58)
[2023-09-03] MEDS: QUEtiapine 25 MG Tab PO SCH (21:26)
[2023-09-03] MEDS: Nystatin Topical Powder 60 GM Bottle TOP PRN (22:21)
[2023-09-04] MEDS: Azithromycin 500 MG in Sodium Chloride 0.9% 250 ML IV SCH (06:21)
[2023-09-04 06:40] LABS: APPEARANCE,URINE CLEAR (CLEAR); BILIRUBIN,URINE NEGATIVE (NEGATIVE); COLOR,URINE YELLOW (YELLOW); GLUCOSE,URINE NEGATIVE (NEGATIVE); KETONES,URINE NEGATIVE (NEGATIVE); LEUKOCYTE ESTERASE,URINE NEGATIVE (NEGATIVE); NITRITE,URINE NEGATIVE (NEGATIVE); OCCULT BLOOD,URINE MODERATE (NEGATIVE); PH,URINE 5.5 (5.0-9.0); PROTEIN,URINE 30 (NEGATIVE); UROBILINOGEN,URINE 0.2 mg/dL (0.2-1.0)
[2023-09-04 06:40] LABS: INR 1.7 (0.9-1.2); PROTHROMBIN TIME 16.9 SEC (9.0-12.0)
[2023-09-04 06:49] LABS: ALBUMIN 2.7 g/dL (3.4-5.0); ANION GAP 11.4 mEq/L (7-13); BILIRUBIN DIRECT 0.1 mg/dL (0.0-0.2); BILIRUBIN TOTAL 0.5 mg/dL (0.2-1.0); BUN/CREATININE RATIO 23.4 (No establ ref range); CALCIUM 8.1 mg/dL (8.5-10.1); CREATININE 0.94 mg/dL (0.70-1.30); EST CRCL DRUG DOSING (CG) 58.48 mL/min; POTASSIUM,K 3.4 mmol/L (3.5-5.1); PROTEIN TOTAL,TP 6.1 g/dL (6.4-8.2)
[2023-09-04 06:51] LABS: AMORPHOUS SEDIMENT,URINE FEW /HPF (NOT SEEN); BACTERIA,URINE RARE /HPF (0-FEW/HPF); EPITHELIAL CELLS,URINE RARE /HPF (NOT SEEN); HYALINE CASTS,URINE FEW; MUCUS,URINE MANY /LPF (NOT SEEN); RBC,URINE 30-40 /HPF (0-5); WBC,URINE 0-5 /HPF (0-5/HPF)
[2023-09-04 06:54] LABS: A/G RATIO 0.79
[2023-09-04] MEDS: REMDESIVIR 100 MG in Sodium Chloride 0.9% 100 ML IV SCH (08:21)
[2023-09-04] MEDS: Potassium Chloride 10 MEQ Tab.ER PO SCH (08:23)
[2023-09-04] MEDS: Citalopram 20 MG Tab PO SCH (08:24)
[2023-09-04] MEDS: Carvedilol 3.125 MG Tab PO SCH ×2 (08:24→21:25)
[2023-09-04] MEDS: Acetaminophen 325 MG Tab PO PRN (08:24)
[2023-09-04] MEDS: Memantine 10 MG Tab PO SCH (08:24)
[2023-09-04] MEDS: Furosemide 20 MG Tab PO SCH (08:24)
[2023-09-04] MEDS ORDERED: Potassium Chloride 10 MEQ Tab.ER PO ONE (08:26)
[2023-09-04] MEDS: Warfarin 5 MG Tab PO SCH (13:53)
[2023-09-04] MEDS: QUEtiapine 25 MG Tab PO SCH (21:25)
[2023-09-05] MEDS: Azithromycin 500 MG in Sodium Chloride 0.9% 250 ML IV SCH (06:33)
[2023-09-05 06:41] LABS: BASOPHILS PERCENT AUTO 0.4 % (0.0-1.0); EOSINOPHILS PERCENT AUTO 2.4 % (1.0-3.0); HEMATOCRIT 31.4 % (40.0-54.0); HEMOGLOBIN 10.3 g/dL (14.0-18.0); LYMPHOCYTES PERCENT AUTO 27.5 % (20.5-50.1); MEAN CORPUSCULAR HGB CONC 32.8 g/dL (33.0-35.0); MEAN CORPUSCULAR VOLUME 97.5 fL (80-100); NEUTROPHILS PERCENT AUTO 52.7 % (42.2-75.2); PLATELET COUNT,PLT 173 10^3/uL (150-450); RED BLOOD CELL COUNT 3.22 10^6/uL (4.6-6.2); WHITE BLOOD CELL COUNT,WBC 2.5 10^3/uL (5.0-10.0)
[2023-09-05 06:54] LABS: INR 1.7 (0.9-1.2); PROTHROMBIN TIME 17.2 SEC (9.0-12.0)
[2023-09-05 06:58] LABS: ALBUMIN 2.6 g/dL (3.4-5.0); ANION GAP 10.7 mEq/L (7-13); BILIRUBIN DIRECT 0.1 mg/dL (0.0-0.2); BILIRUBIN TOTAL 0.5 mg/dL (0.2-1.0); BUN/CREATININE RATIO 25.6 (No establ ref range); CALCIUM 7.9 mg/dL (8.5-10.1); CREATININE 0.9 mg/dL (0.70-1.30); EST CRCL DRUG DOSING (CG) 61.07 mL/min; POTASSIUM,K 3.7 mmol/L (3.5-5.1); PROTEIN TOTAL,TP 5.8 g/dL (6.4-8.2)
[2023-09-05 07:02] LABS: A/G RATIO 0.81
[2023-09-05] MEDS: Citalopram 20 MG Tab PO SCH (09:20)
[2023-09-05] MEDS: Potassium Chloride 10 MEQ Tab.ER PO SCH (09:20)
[2023-09-05] MEDS: Furosemide 20 MG Tab PO SCH (09:20)
[2023-09-05] MEDS: Memantine 10 MG Tab PO SCH (09:20)
[2023-09-05] MEDS: REMDESIVIR 100 MG in Sodium Chloride 0.9% 100 ML IV SCH (09:22)
[2023-09-05] MEDS: Carvedilol 3.125 MG Tab PO SCH ×2 (09:25→20:46)
[2023-09-05] MEDS ORDERED: Warfarin 2 MG Tab PO ONE (14:40)
[2023-09-05] MEDS: Warfarin 2.5 MG Tab PO SCH (15:21)
[2023-09-05 15:25] LABS: INR 1.6 (0.9-1.2); PROTHROMBIN TIME 16.5 SEC (9.0-12.0)
[2023-09-05] MEDS: QUEtiapine 25 MG Tab PO SCH (20:40)
[2023-09-05] MEDS: Acetaminophen 325 MG Tab PO PRN (20:46)
[2023-09-06] MEDS: Azithromycin 500 MG in Sodium Chloride 0.9% 250 ML IV SCH (06:28)
[2023-09-06 07:01] LABS: ALBUMIN 2.7 g/dL (3.4-5.0); ANION GAP 10.3 mEq/L (7-13); BILIRUBIN DIRECT 0.1 mg/dL (0.0-0.2); BILIRUBIN TOTAL 0.6 mg/dL (0.2-1.0); BUN/CREATININE RATIO 23.9 (No establ ref range); CALCIUM 8.2 mg/dL (8.5-10.1); CREATININE 0.92 mg/dL (0.70-1.30); EST CRCL DRUG DOSING (CG) 59.75 mL/min; POTASSIUM,K 3.3 mmol/L (3.5-5.1); PROTEIN TOTAL,TP 5.9 g/dL (6.4-8.2)
[2023-09-06 07:07] LABS: A/G RATIO 0.84
[2023-09-06] MEDS: Furosemide 20 MG Tab PO SCH (08:03)
[2023-09-06] MEDS: Carvedilol 3.125 MG Tab PO SCH ×2 (08:03→20:42)
[2023-09-06] MEDS: Potassium Chloride 10 MEQ Tab.ER PO SCH (08:03)
[2023-09-06] MEDS: Memantine 10 MG Tab PO SCH (08:03)
[2023-09-06] MEDS: Citalopram 20 MG Tab PO SCH (08:04)
[2023-09-06] MEDS: REMDESIVIR 100 MG in Sodium Chloride 0.9% 100 ML IV SCH (08:05)
[2023-09-06] MEDS: Warfarin 5 MG Tab PO SCH (14:50)
[2023-09-06] MEDS: QUEtiapine 25 MG Tab PO SCH (20:37)
[2023-09-07] MEDS: Azithromycin 500 MG in Sodium Chloride 0.9% 250 ML IV SCH ×2 (05:51→06:18)
[2023-09-07] MEDS: Furosemide 20 MG Tab PO SCH (08:37)
[2023-09-07] MEDS: Carvedilol 3.125 MG Tab PO SCH (08:37)
[2023-09-07] MEDS: Citalopram 20 MG Tab PO SCH (08:37)
[2023-09-07] MEDS: Memantine 10 MG Tab PO SCH (08:38)
[2023-09-07] MEDS: Potassium Chloride 10 MEQ Tab.ER PO SCH (08:38)
[2023-09-07 13:27] VITALS: BP 116/58; PULSE 84
== END 2023-09-07 13:05 | disposition swing bed (61) | DRG 177 ==
LOC: DL.ED 02:22 → DL.MS 05:33
PROVIDERS: ADMIT Internal Medicine; ATTEND Internal Medicine
PROC: XW033E5 Introduction of Remdesivir Anti-infective into Peripheral Vein, Percutaneous Approach, New Technology Group 5 (ICD-10-PCS; principal; 2023-09-02)
DX: U07.1 COVID-19 (principal); I48.91 Unspecified atrial fibrillation; J12.82 Pneumonia due to coronavirus disease 2019; I50.30 Unspecified diastolic (congestive) heart failure; I11.0 Hypertensive heart disease with heart failure; I27.20 Pulmonary hypertension, unspecified; E78.5 Hyperlipidemia, unspecified; I50.9 Heart failure, unspecified; E78.00 Pure hypercholesterolemia, unspecified; N40.0 Benign prostatic hyperplasia without lower urinary tract symptoms; R29.898 Other symptoms and signs involving the musculoskeletal system; D64.9 Anemia, unspecified; I48.0 Paroxysmal atrial fibrillation; G30.9 Alzheimer's disease, unspecified; F02.80 Dementia in other diseases classified elsewhere, unspecified severity, without behavioral disturbance, psychotic disturbance, mood disturbance, and anxiety; R53.1 Weakness; E87.6 Hypokalemia; Z79.01 Long term (current) use of anticoagulants; Z88.5 Allergy status to narcotic agent; Z88.8 Allergy status to other drugs, medicaments and biological substances; Z88.2 Allergy status to sulfonamides; Z88.0 Allergy status to penicillin; Z88.7 Allergy status to serum and vaccine; Z88.1 Allergy status to other antibiotic agents; Z79.899 Other long term (current) drug therapy; Z85.828 Personal history of other malignant neoplasm of skin; Z96.659 Presence of unspecified artificial knee joint; Z96.619 Presence of unspecified artificial shoulder joint; Z98.890 Other specified postprocedural states; W19.XXXA Unspecified fall, initial encounter
CPT/HCPCS: 0241U; 36415; 70450; 71045; 80053; 81001; 82248; 83605; 84145; 84484; 85025; 85610; 85730; 86140; 87040; 87086; 93005; 93010; 97161-GP; 97166-GO; 97530-GO; 97535-GO; 99284; 99285; A9270-GY; C1758; J0248; J0456; J3490; J7030; J7050

== ENCOUNTER 2023-09-07 08:34 | Inpatient (IN) | payer MEDICARE, BC ==
[2023-09-07] MEDS ORDERED: Polyvinyl Alcohol 1.4% Ophth Soln 15 ML Bottle EYEBOTH PRN (12:42)
[2023-09-07] MEDS ORDERED: Acetaminophen/HYDROcodone 325-5 MG Tab PO PRN (12:42)
[2023-09-07] MEDS ORDERED: Nystatin Topical Powder 60 GM Bottle TOP PRN (12:42)
[2023-09-07] MEDS ORDERED: Docusate Sodium 100 MG Cap PO PRN (12:42)
[2023-09-07] MEDS ORDERED: Ondansetron 4 MG Tab.DIS PO PRN (12:42)
[2023-09-07] MEDS ORDERED: Albuterol/Ipratropium 3.0-0.5 MG/3 ML Neb Soln NEB PRN (12:42)
[2023-09-07 13:32] LABS: INR 2.2 (0.9-1.2); PROTHROMBIN TIME 22.3 SEC (9.0-12.0)
[2023-09-07] MEDS: Warfarin 5 MG Tab PO SCH (15:28)
[2023-09-07] MEDS: QUEtiapine 25 MG Tab PO SCH (20:53)
[2023-09-07] MEDS: Carvedilol 3.125 MG Tab PO SCH (20:53)
[2023-09-07] MEDS: Acetaminophen 325 MG Tab PO PRN (20:54)
[2023-09-08] MEDS ORDERED: Azithromycin 500 MG in Sodium Chloride 0.9% 250 ML IV SCH ×2 (07:00→08:00)
[2023-09-08] MEDS: Furosemide 20 MG Tab PO SCH (08:18)
[2023-09-08] MEDS: Potassium Chloride 10 MEQ Tab.ER PO SCH (08:19)
[2023-09-08] MEDS: Citalopram 20 MG Tab PO SCH (08:19)
[2023-09-08] MEDS: Carvedilol 3.125 MG Tab PO SCH ×2 (08:19→22:07)
[2023-09-08] MEDS: Memantine 10 MG Tab PO SCH (08:20)
[2023-09-08] MEDS ORDERED: Azithromycin 250 MG Tab PO ONE (09:30)
[2023-09-08] MEDS: Warfarin 5 MG Tab PO SCH (13:54)
[2023-09-08] MEDS: QUEtiapine 25 MG Tab PO SCH (22:04)
[2023-09-09] MEDS: Potassium Chloride 10 MEQ Tab.ER PO SCH (08:22)
[2023-09-09] MEDS: Citalopram 20 MG Tab PO SCH (08:24)
[2023-09-09] MEDS: Memantine 10 MG Tab PO SCH (08:24)
[2023-09-09] MEDS: Furosemide 20 MG Tab PO SCH (08:24)
[2023-09-09] MEDS: Carvedilol 3.125 MG Tab PO SCH ×2 (08:24→21:17)
[2023-09-09] MEDS: Acetaminophen 325 MG Tab PO PRN (13:55)
[2023-09-09] MEDS: Warfarin 2.5 MG Tab PO SCH (13:56)
[2023-09-09] MEDS: QUEtiapine 25 MG Tab PO SCH (21:17)
[2023-09-10] MEDS: Citalopram 20 MG Tab PO SCH (08:47)
[2023-09-10] MEDS: Memantine 10 MG Tab PO SCH (08:47)
[2023-09-10] MEDS: Potassium Chloride 10 MEQ Tab.ER PO SCH (08:47)
[2023-09-10] MEDS: Furosemide 20 MG Tab PO SCH (08:47)
[2023-09-10] MEDS: Carvedilol 3.125 MG Tab PO SCH ×2 (08:47→20:39)
[2023-09-10] MEDS: Warfarin 5 MG Tab PO SCH (14:13)
[2023-09-10] MEDS: QUEtiapine 25 MG Tab PO SCH (20:40)
[2023-09-11] MEDS: Potassium Chloride 10 MEQ Tab.ER PO SCH (08:43)
[2023-09-11] MEDS: Carvedilol 3.125 MG Tab PO SCH ×2 (08:43→21:55)
[2023-09-11] MEDS: Memantine 10 MG Tab PO SCH (08:43)
[2023-09-11] MEDS: Furosemide 20 MG Tab PO SCH (08:43)
[2023-09-11] MEDS: Citalopram 20 MG Tab PO SCH (08:43)
[2023-09-11] MEDS: Acetaminophen 325 MG Tab PO PRN ×2 (12:55→21:54)
[2023-09-11] MEDS: Warfarin 5 MG Tab PO SCH (14:07)
[2023-09-11 14:40] LABS: INR 3.7 (0.9-1.2); PROTHROMBIN TIME 36.5 SEC (9.0-12.0)
[2023-09-11] MEDS: QUEtiapine 25 MG Tab PO SCH (21:53)
[2023-09-12] MEDS: Carvedilol 3.125 MG Tab PO SCH ×2 (08:32→20:16)
[2023-09-12] MEDS: Citalopram 20 MG Tab PO SCH (08:33)
[2023-09-12] MEDS: Potassium Chloride 10 MEQ Tab.ER PO SCH (08:33)
[2023-09-12] MEDS: Furosemide 20 MG Tab PO SCH (08:33)
[2023-09-12] MEDS: Memantine 10 MG Tab PO SCH (08:33)
[2023-09-12] MEDS: Warfarin 2.5 MG Tab PO SCH (14:50)
[2023-09-12] MEDS: QUEtiapine 25 MG Tab PO SCH (20:16)
[2023-09-13] MEDS: Potassium Chloride 10 MEQ Tab.ER PO SCH (08:50)
[2023-09-13] MEDS: Furosemide 20 MG Tab PO SCH (08:50)
[2023-09-13] MEDS: Citalopram 20 MG Tab PO SCH (08:51)
[2023-09-13] MEDS: Carvedilol 3.125 MG Tab PO SCH ×3 (08:51→20:00)
[2023-09-13] MEDS: Memantine 10 MG Tab PO SCH (08:51)
[2023-09-13] MEDS: Warfarin 5 MG Tab PO SCH (14:28)
[2023-09-13] MEDS: QUEtiapine 25 MG Tab PO SCH ×2 (19:46→20:00)
[2023-09-14 06:02] LABS: INR 3.4 (0.9-1.2); PROTHROMBIN TIME 33.8 SEC (9.0-12.0)
[2023-09-14] MEDS: Memantine 10 MG Tab PO SCH (08:34)
[2023-09-14] MEDS: Carvedilol 3.125 MG Tab PO SCH ×2 (08:34→20:10)
[2023-09-14] MEDS: Potassium Chloride 10 MEQ Tab.ER PO SCH (08:34)
[2023-09-14] MEDS: Furosemide 20 MG Tab PO SCH (08:34)
[2023-09-14] MEDS: Citalopram 20 MG Tab PO SCH (08:34)
[2023-09-14] MEDS: QUEtiapine 25 MG Tab PO SCH (20:11)
[2023-09-15] MEDS: Potassium Chloride 10 MEQ Tab.ER PO SCH (08:33)
[2023-09-15] MEDS: Memantine 10 MG Tab PO SCH (08:34)
[2023-09-15] MEDS: Furosemide 20 MG Tab PO SCH (08:34)
[2023-09-15] MEDS: Citalopram 20 MG Tab PO SCH (08:34)
[2023-09-15] MEDS: Carvedilol 3.125 MG Tab PO SCH ×2 (08:34→20:21)
[2023-09-15] MEDS: QUEtiapine 25 MG Tab PO SCH (20:21)
[2023-09-15] MEDS: Acetaminophen 325 MG Tab PO PRN (20:22)
[2023-09-16 06:26] LABS: INR 2.5 (0.9-1.2); PROTHROMBIN TIME 24.6 SEC (9.0-12.0)
[2023-09-16] MEDS: Potassium Chloride 10 MEQ Tab.ER PO SCH (08:30)
[2023-09-16] MEDS: Memantine 10 MG Tab PO SCH (08:30)
[2023-09-16] MEDS: Furosemide 20 MG Tab PO SCH (08:30)
[2023-09-16] MEDS: Carvedilol 3.125 MG Tab PO SCH ×2 (08:30→22:02)
[2023-09-16] MEDS: Citalopram 20 MG Tab PO SCH (08:30)
[2023-09-16] MEDS: [UNRECOGNIZED DRUG - REMARK] SCH (12:59)
[2023-09-16] MEDS ORDERED: Warfarin 2.5 MG Tab PO ONE (14:00)
[2023-09-16] MEDS: QUEtiapine 25 MG Tab PO SCH (22:02)
[2023-09-16] MEDS: Acetaminophen 325 MG Tab PO PRN (22:05)
[2023-09-17] MEDS: Potassium Chloride 10 MEQ Tab.ER PO SCH (10:00)
[2023-09-17] MEDS: Carvedilol 3.125 MG Tab PO SCH ×2 (10:00→20:54)
[2023-09-17] MEDS: Citalopram 20 MG Tab PO SCH (10:00)
[2023-09-17] MEDS: Furosemide 20 MG Tab PO SCH (10:00)
[2023-09-17] MEDS: Memantine 10 MG Tab PO SCH (10:00)
[2023-09-17] MEDS: Warfarin 2.5 MG Tab PO SCH (16:43)
[2023-09-17] MEDS: Acetaminophen 325 MG Tab PO PRN (20:54)
[2023-09-17] MEDS: QUEtiapine 25 MG Tab PO SCH (20:54)
[2023-09-18] MEDS: Potassium Chloride 10 MEQ Tab.ER PO SCH (09:22)
[2023-09-18] MEDS: Citalopram 20 MG Tab PO SCH (09:23)
[2023-09-18] MEDS: Furosemide 20 MG Tab PO SCH (09:23)
[2023-09-18] MEDS: Memantine 10 MG Tab PO SCH (09:23)
[2023-09-18] MEDS: Carvedilol 3.125 MG Tab PO SCH ×2 (09:23→21:03)
[2023-09-18] MEDS: Warfarin 2.5 MG Tab PO SCH (14:09)
[2023-09-18] MEDS: QUEtiapine 25 MG Tab PO SCH (21:03)
[2023-09-19 06:22] LABS: BASOPHILS PERCENT AUTO 0.7 % (0.0-1.0); EOSINOPHILS PERCENT AUTO 2.9 % (1.0-3.0); HEMATOCRIT 31.5 % (40.0-54.0); HEMOGLOBIN 10.4 g/dL (14.0-18.0); LYMPHOCYTES PERCENT AUTO 24.6 % (20.5-50.1); MEAN CORPUSCULAR HEMOGLOBIN 32.8 pg (27.0-34.0); MEAN CORPUSCULAR VOLUME 99.4 fL (80-100); MONOCYTES PERCENT AUTO 11.2 % (2-8); NEUTROPHILS PERCENT AUTO 60.6 % (42.2-75.2); PLATELET COUNT,PLT 260 10^3/uL (150-450); RED BLOOD CELL COUNT 3.17 10^6/uL (4.6-6.2); WHITE BLOOD CELL COUNT,WBC 4.5 10^3/uL (5.0-10.0)
[2023-09-19 06:37] LABS: INR 1.7 (0.9-1.2); PROTHROMBIN TIME 17.2 SEC (9.0-12.0)
[2023-09-19 06:44] LABS: ALANINE AMINOTRANSFERASE,ALT 28 U/L (16-63); ALBUMIN 2.7 g/dL (3.4-5.0); ALKALINE PHOSPHATASE 80 U/L (46-116); ANION GAP 9.8 mEq/L (7-13); ASPARTATE AMNIOTRANSFERASE,AST 21 U/L (15-37); BILIRUBIN TOTAL 0.9 mg/dL (0.2-1.0); BLOOD UREA NITROGEN,BUN 30 mg/dL (7-18); BUN/CREATININE RATIO 30.6 (No establ ref range); CALCIUM 8.4 mg/dL (8.5-10.1); CARBON DIOXIDE,CO2 30 mmol/L (21-32); CHLORIDE,CL 106 mmol/L (98-107); CREATININE 0.98 mg/dL (0.70-1.30); GLUCOSE RANDOM 85 mg/dL (70-99); POTASSIUM,K 3.8 mmol/L (3.5-5.1); PROTEIN TOTAL,TP 6.1 g/dL (6.4-8.2); SODIUM,NA 142 mmol/L (136-145)
[2023-09-19 06:48] LABS: A/G RATIO 0.79; ESTIMATED GFR 74 mL/min (>=60)
[2023-09-19] MEDS: Memantine 10 MG Tab PO SCH (08:44)
[2023-09-19] MEDS: Carvedilol 3.125 MG Tab PO SCH ×2 (08:44→20:29)
[2023-09-19] MEDS: Citalopram 20 MG Tab PO SCH (08:45)
[2023-09-19] MEDS: Potassium Chloride 10 MEQ Tab.ER PO SCH (08:45)
[2023-09-19] MEDS: Furosemide 20 MG Tab PO SCH (08:45)
[2023-09-19] MEDS: Warfarin 5 MG Tab PO SCH (14:08)
[2023-09-19] MEDS: QUEtiapine 25 MG Tab PO SCH (20:29)
[2023-09-20 07:03] LABS: INR 1.6 (0.9-1.2); PROTHROMBIN TIME 16.5 SEC (9.0-12.0)
[2023-09-20] MEDS: Potassium Chloride 10 MEQ Tab.ER PO SCH (07:43)
[2023-09-20] MEDS: Carvedilol 3.125 MG Tab PO SCH ×2 (08:34→20:14)
[2023-09-20] MEDS: Memantine 10 MG Tab PO SCH (08:34)
[2023-09-20] MEDS: Furosemide 20 MG Tab PO SCH (08:34)
[2023-09-20] MEDS: Citalopram 20 MG Tab PO SCH (08:34)
[2023-09-20] MEDS: Acetaminophen 325 MG Tab PO PRN (08:35)
[2023-09-20] MEDS: Warfarin 2.5 MG Tab PO SCH (13:12)
[2023-09-20] MEDS: QUEtiapine 25 MG Tab PO SCH (20:15)
[2023-09-21 07:45] LABS: INR 1.7 (0.9-1.2); PROTHROMBIN TIME 17.2 SEC (9.0-12.0)
[2023-09-21] MEDS: Citalopram 20 MG Tab PO SCH (08:20)
[2023-09-21] MEDS: Furosemide 20 MG Tab PO SCH (08:20)
[2023-09-21] MEDS: Memantine 10 MG Tab PO SCH (08:20)
[2023-09-21] MEDS: Potassium Chloride 10 MEQ Tab.ER PO SCH (08:20)
[2023-09-21] MEDS: Acetaminophen 325 MG Tab PO PRN (08:21)
[2023-09-21] MEDS: Carvedilol 3.125 MG Tab PO SCH ×2 (08:21→20:32)
[2023-09-21] MEDS: Warfarin 5 MG Tab PO SCH (13:46)
[2023-09-21] MEDS: QUEtiapine 25 MG Tab PO SCH (20:31)
[2023-09-22 06:57] LABS: INR 1.8 (0.9-1.2); PROTHROMBIN TIME 17.8 SEC (9.0-12.0)
[2023-09-22] MEDS: Furosemide 20 MG Tab PO SCH (08:35)
[2023-09-22] MEDS: Citalopram 20 MG Tab PO SCH (08:35)
[2023-09-22] MEDS: Carvedilol 3.125 MG Tab PO SCH ×2 (08:35→21:21)
[2023-09-22] MEDS: Potassium Chloride 10 MEQ Tab.ER PO SCH (08:36)
[2023-09-22] MEDS: Memantine 10 MG Tab PO SCH (08:38)
[2023-09-22] MEDS ORDERED: Warfarin 5 MG Tab PO ONE (14:00)
[2023-09-22] MEDS: QUEtiapine 25 MG Tab PO SCH (21:20)
[2023-09-22] MEDS: [UNRECOGNIZED DRUG - REMARK] SCH (22:38)
[2023-09-23 06:35] LABS: PROTHROMBIN TIME 20.2 SEC (9.0-12.0)
[2023-09-23] MEDS: Potassium Chloride 10 MEQ Tab.ER PO SCH (08:56)
[2023-09-23] MEDS: Carvedilol 3.125 MG Tab PO SCH ×2 (08:57→20:58)
[2023-09-23] MEDS: Memantine 10 MG Tab PO SCH (08:57)
[2023-09-23] MEDS: Furosemide 20 MG Tab PO SCH (08:57)
[2023-09-23] MEDS: Citalopram 20 MG Tab PO SCH (08:58)
[2023-09-23] MEDS: Warfarin 5 MG Tab PO SCH (14:39)
[2023-09-23] MEDS: QUEtiapine 25 MG Tab PO SCH (20:57)
[2023-09-24 06:46] LABS: INR 2.1 (0.9-1.2); PROTHROMBIN TIME 21.2 SEC (9.0-12.0)
[2023-09-24] MEDS: Potassium Chloride 10 MEQ Tab.ER PO SCH (08:29)
[2023-09-24] MEDS: Memantine 10 MG Tab PO SCH (08:29)
[2023-09-24] MEDS: Citalopram 20 MG Tab PO SCH (08:30)
[2023-09-24] MEDS: Furosemide 20 MG Tab PO SCH (08:30)
[2023-09-24] MEDS: Carvedilol 3.125 MG Tab PO SCH ×2 (08:30→20:21)
[2023-09-24] MEDS: Warfarin 2.5 MG Tab PO SCH (13:20)
[2023-09-24] MEDS: QUEtiapine 25 MG Tab PO SCH (20:22)
[2023-09-25] MEDS: Potassium Chloride 10 MEQ Tab.ER PO SCH (09:35)
[2023-09-25] MEDS: Citalopram 20 MG Tab PO SCH (09:36)
[2023-09-25] MEDS: Carvedilol 3.125 MG Tab PO SCH ×2 (09:36→20:40)
[2023-09-25] MEDS: Memantine 10 MG Tab PO SCH (09:36)
[2023-09-25] MEDS: Furosemide 20 MG Tab PO SCH (09:36)
[2023-09-25] MEDS: Warfarin 5 MG Tab PO SCH (13:42)
[2023-09-25] MEDS: QUEtiapine 25 MG Tab PO SCH (20:41)
[2023-09-26 06:39] LABS: BASOPHILS PERCENT AUTO 0.6 % (0.0-1.0); EOSINOPHILS PERCENT AUTO 2.5 % (1.0-3.0); HEMATOCRIT 33.1 % (40.0-54.0); HEMOGLOBIN 10.9 g/dL (14.0-18.0); LYMPHOCYTES PERCENT AUTO 31.3 % (20.5-50.1); MEAN CORPUSCULAR HEMOGLOBIN 32.8 pg (27.0-34.0); MEAN CORPUSCULAR HGB CONC 32.9 g/dL (33.0-35.0); MEAN CORPUSCULAR VOLUME 99.7 fL (80-100); MONOCYTES PERCENT AUTO 13.8 % (2-8); NEUTROPHILS PERCENT AUTO 51.8 % (42.2-75.2); PLATELET COUNT,PLT 258 10^3/uL (150-450); RED BLOOD CELL COUNT 3.32 10^6/uL (4.6-6.2); WHITE BLOOD CELL COUNT,WBC 3.2 10^3/uL (5.0-10.0)
[2023-09-26 06:59] LABS: ALBUMIN 2.8 g/dL (3.4-5.0); ANION GAP 10.6 mEq/L (7-13); BILIRUBIN TOTAL 0.8 mg/dL (0.2-1.0); BUN/CREATININE RATIO 26.3 (No establ ref range); CALCIUM 8.8 mg/dL (8.5-10.1); CREATININE 0.99 mg/dL (0.70-1.30); EST CRCL DRUG DOSING (CG) 55.52 mL/min; POTASSIUM,K 4.6 mmol/L (3.5-5.1); PROTEIN TOTAL,TP 6.4 g/dL (6.4-8.2)
[2023-09-26 07:00] LABS: A/G RATIO 0.78
[2023-09-26] MEDS: Potassium Chloride 10 MEQ Tab.ER PO SCH (07:52)
[2023-09-26] MEDS: Memantine 10 MG Tab PO SCH (07:59)
[2023-09-26] MEDS: Furosemide 20 MG Tab PO SCH (07:59)
[2023-09-26] MEDS: Carvedilol 3.125 MG Tab PO SCH ×2 (07:59→20:15)
[2023-09-26] MEDS: Citalopram 20 MG Tab PO SCH (08:00)
[2023-09-26] MEDS: Warfarin 5 MG Tab PO SCH (14:32)
[2023-09-26] MEDS: QUEtiapine 25 MG Tab PO SCH (20:15)
[2023-09-27 07:01] LABS: INR 2.3 (0.9-1.2); PROTHROMBIN TIME 22.9 SEC (9.0-12.0)
[2023-09-27] MEDS ORDERED: Sodium Chloride 0.9% 50 ML IV SCH (09:15)
[2023-09-27] MEDS: Furosemide 20 MG Tab PO SCH (09:28)
[2023-09-27] MEDS: Memantine 10 MG Tab PO SCH (09:28)
[2023-09-27] MEDS: Citalopram 20 MG Tab PO SCH (09:28)
[2023-09-27] MEDS: Carvedilol 3.125 MG Tab PO SCH ×2 (09:28→21:54)
[2023-09-27] MEDS: Potassium Chloride 10 MEQ Tab.ER PO SCH (09:28)
[2023-09-27] MEDS: Warfarin 2.5 MG Tab PO SCH (14:49)
[2023-09-27] MEDS: QUEtiapine 25 MG Tab PO SCH (21:50)
[2023-09-28 07:25] LABS: INR 2.5 (0.9-1.2); PROTHROMBIN TIME 24.6 SEC (9.0-12.0)
[2023-09-28 08:34] VITALS: PULSE 74
[2023-09-28] MEDS: Furosemide 20 MG Tab PO SCH (10:26)
[2023-09-28 10:32] VITALS: BP 105/81
[2023-09-28] MEDS: Potassium Chloride 10 MEQ Tab.ER PO SCH (10:32)
[2023-09-28] MEDS: Memantine 10 MG Tab PO SCH (10:33)
[2023-09-28] MEDS: Carvedilol 3.125 MG Tab PO SCH (10:33)
[2023-09-28] MEDS: Citalopram 20 MG Tab PO SCH (10:33)
[2023-09-28] MEDS: Warfarin 5 MG Tab PO SCH (14:17)
== END 2023-09-28 12:50 | disposition other institution (70) | DRG 948 ==
LOC: DL.MS 12:50 → UNDOADMIN 13:05 → DL.MS 13:05
PROVIDERS: ADMIT Internal Medicine; ATTEND Internal Medicine
DX: R53.81 Other malaise (principal); I50.30 Unspecified diastolic (congestive) heart failure; F02.84 Dementia in other diseases classified elsewhere, unspecified severity, with anxiety; R53.1 Weakness; I27.20 Pulmonary hypertension, unspecified; N40.0 Benign prostatic hyperplasia without lower urinary tract symptoms; G30.9 Alzheimer's disease, unspecified; R41.3 Other amnesia; D64.9 Anemia, unspecified; U09.9 Post COVID-19 condition, unspecified; E78.00 Pure hypercholesterolemia, unspecified; E88.09 Other disorders of plasma-protein metabolism, not elsewhere classified; I11.0 Hypertensive heart disease with heart failure; I48.0 Paroxysmal atrial fibrillation; G47.33 Obstructive sleep apnea (adult) (pediatric); S82.61XD Displaced fracture of lateral malleolus of right fibula, subsequent encounter for closed fracture with routine healing; W19.XXXD Unspecified fall, subsequent encounter; Z79.01 Long term (current) use of anticoagulants; Z79.899 Other long term (current) drug therapy; Z88.5 Allergy status to narcotic agent; Z88.2 Allergy status to sulfonamides; Z88.8 Allergy status to other drugs, medicaments and biological substances; Z88.7 Allergy status to serum and vaccine; Z88.0 Allergy status to penicillin; Z87.891 Personal history of nicotine dependence
CPT/HCPCS: 36415; 70450; 73600-RT; 80053; 83735; 85025; 85610; 97110-GO; 97110-GP; 97116-GP; 97161-GP; 97165-GO; 97530-GO; 97530-GP; 97535-GO; A9270-GY

== ENCOUNTER 2024-04-04 18:46 | Emergency (ER) | payer MEDICARE, BC ==
[2024-04-04 19:23] LABS: BASOPHILS PERCENT AUTO 0.5 % (0.0-1.0); EOSINOPHILS PERCENT AUTO 1.6 % (1.0-3.0); HEMATOCRIT 37.4 % (40.0-54.0); HEMOGLOBIN 12.4 g/dL (14.0-18.0); LYMPHOCYTES PERCENT AUTO 12.6 % (20.5-50.1); MEAN CORPUSCULAR HGB CONC 33.2 g/dL (33.0-35.0); MEAN CORPUSCULAR VOLUME 99.5 fL (80-100); NEUTROPHILS PERCENT AUTO 77.3 % (42.2-75.2); PLATELET COUNT,PLT 223 10^3/uL (150-450); RED BLOOD CELL COUNT 3.76 10^6/uL (4.6-6.2); WHITE BLOOD CELL COUNT,WBC 6.3 10^3/uL (5.0-10.0)
[2024-04-04 19:38] LABS: INR 1.9 (0.9-1.2); PROTHROMBIN TIME 18.8 SEC (9.0-12.0)
[2024-04-04 19:42] LABS: A/G RATIO 0.9; ALANINE AMINOTRANSFERASE,ALT 26 U/L (16-63); ALBUMIN 3.4 g/dL (3.4-5.0); ALKALINE PHOSPHATASE 96 U/L (46-116); ANION GAP 9.7 mEq/L (7-13); ASPARTATE AMNIOTRANSFERASE,AST 24 U/L (15-37); BILIRUBIN TOTAL 0.6 mg/dL (0.2-1.0); BLOOD UREA NITROGEN,BUN 30 mg/dL (7-18); CALCIUM 9.2 mg/dL (8.5-10.1); CARBON DIOXIDE,CO2 32 mmol/L (21-32); CHLORIDE,CL 103 mmol/L (98-107); CREATININE 1.43 mg/dL (0.70-1.30); EST CRCL DRUG DOSING (CG) 35.02 mL/min; GLUCOSE RANDOM 99 mg/dL (70-99); MAGNESIUM 1.9 mg/dL (1.8-2.4); POTASSIUM,K 4.7 mmol/L (3.5-5.1); SODIUM,NA 140 mmol/L (136-145)
[2024-04-04 19:43] LABS: APPEARANCE,URINE CLEAR (CLEAR); BILIRUBIN,URINE NEGATIVE (NEGATIVE); COLOR,URINE YELLOW (YELLOW); GLUCOSE,URINE NEGATIVE (NEGATIVE); KETONES,URINE NEGATIVE (NEGATIVE); LEUKOCYTE ESTERASE,URINE NEGATIVE (NEGATIVE); NITRITE,URINE NEGATIVE (NEGATIVE); OCCULT BLOOD,URINE TRACE-INTACT (NEGATIVE); PH,URINE 5.5 (5.0-9.0); PROTEIN,URINE NEGATIVE (NEGATIVE); UROBILINOGEN,URINE 0.2 mg/dL (0.2-1.0)
[2024-04-04 19:43] LABS: C-REACTIVE PROTEIN < 0.50 ng/dL (<=0.50); ESTIMATED GFR 47 mL/min (>=60)
[2024-04-04 19:55] LABS: BACTERIA,URINE FEW /HPF (0-FEW/HPF); EPITHELIAL CELLS,URINE RARE /HPF (NOT SEEN); RBC,URINE 0-5 /HPF (0-5); WBC,URINE 0-5 /HPF (0-5/HPF)
[2024-04-04] MEDS: Sodium Chloride 0.9% 500 ML IV SCH (20:33)
[2024-04-04 21:00] VITALS: BP 118/78; PULSE 99
[2024-04-04] MEDS ORDERED: Phytonadione 1 MG/0.5 ML Syringe IM ONE (21:04)
== END 2024-04-04 21:41 ==
LOC: DL.ED 18:46
DX: S72.011A Unspecified intracapsular fracture of right femur, initial encounter for closed fracture (principal); S06.5XAA Traumatic subdural hemorrhage with loss of consciousness status unknown, initial encounter; J90 Pleural effusion, not elsewhere classified; I11.0 Hypertensive heart disease with heart failure; I50.9 Heart failure, unspecified; I48.91 Unspecified atrial fibrillation; E78.00 Pure hypercholesterolemia, unspecified; Z86.16 Personal history of COVID-19; Z79.01 Long term (current) use of anticoagulants; Z79.899 Other long term (current) drug therapy; Z88.0 Allergy status to penicillin; Z88.2 Allergy status to sulfonamides; Z88.5 Allergy status to narcotic agent; Z88.8 Allergy status to other drugs, medicaments and biological substances; Z88.7 Allergy status to serum and vaccine; Z88.1 Allergy status to other antibiotic agents; W19.XXXA Unspecified fall, initial encounter; Y92.098 Other place in other non-institutional residence as the place of occurrence of the external cause
CPT/HCPCS: 36415; 70450; 71045; 72125; 72192; 80053; 81001; 83735; 83880; 85025; 85610; 86140; 93010; 96360; 96372; 99285; 99285-25; J3430; J7040

== ENCOUNTER 2024-05-14 08:20 | Inpatient (IN) | payer MEDICARE, BC ==
[2024-05-14 08:13] LABS: HEMATOCRIT 27.2 % (40.0-54.0); HEMOGLOBIN 8.5 g/dL (14.0-18.0); MEAN CORPUSCULAR HEMOGLOBIN 32.1 pg (27.0-34.0); MEAN CORPUSCULAR HGB CONC 31.3 g/dL (33.0-35.0); MEAN CORPUSCULAR VOLUME 102.6 fL (80-100); PLATELET COUNT,PLT 210 10^3/uL (150-450); RED BLOOD CELL COUNT 2.65 10^6/uL (4.6-6.2); WHITE BLOOD CELL COUNT,WBC 25.3 10^3/uL (5.0-10.0)
[2024-05-14 08:17] LABS: BASOPHILS PERCENT AUTO 0.1 % (0.0-1.0); LYMPHOCYTES PERCENT AUTO 3.1 % (20.5-50.1); MONOCYTES PERCENT AUTO 3.2 % (2-8); NEUTROPHILS PERCENT AUTO 93.6 % (42.2-75.2)
[2024-05-14 08:25] LABS: APPEARANCE,URINE TURBID (CLEAR); BILIRUBIN,URINE SMALL (NEGATIVE); COLOR,URINE AMBER (YELLOW); GLUCOSE,URINE NEGATIVE (NEGATIVE); KETONES,URINE NEGATIVE (NEGATIVE); LEUKOCYTE ESTERASE,URINE LARGE (NEGATIVE); NITRITE,URINE POSITIVE (NEGATIVE); OCCULT BLOOD,URINE LARGE (NEGATIVE); PH,URINE 5.5 (5.0-9.0); PROTEIN,URINE 100 (NEGATIVE); UROBILINOGEN,URINE 0.2 mg/dL (0.2-1.0)
[2024-05-14 08:33] LABS: ALANINE AMINOTRANSFERASE,ALT 26 U/L (16-63); ALBUMIN 2.2 g/dL (3.4-5.0); ALKALINE PHOSPHATASE 181 U/L (46-116); ANION GAP 14.5 mEq/L (7-13); ASPARTATE AMNIOTRANSFERASE,AST 42 U/L (15-37); BILIRUBIN TOTAL 0.8 mg/dL (0.2-1.0); BLOOD UREA NITROGEN,BUN 36 mg/dL (7-18); CALCIUM 8.9 mg/dL (8.5-10.1); CARBON DIOXIDE,CO2 29 mmol/L (21-32); CHLORIDE,CL 106 mmol/L (98-107); CREATININE 2.76 mg/dL (0.70-1.30); GLUCOSE RANDOM 92 mg/dL (70-99); LIPASE 8 U/L (16-77); MAGNESIUM 1.9 mg/dL (1.8-2.4); POTASSIUM,K 4.5 mmol/L (3.5-5.1); PROTEIN TOTAL,TP 6.4 g/dL (6.4-8.2); SODIUM,NA 145 mmol/L (136-145)
[2024-05-14 08:35] LABS: A/G RATIO 0.52; ESTIMATED GFR 21 mL/min (>=60)
[2024-05-14 08:36] LABS: B-TYPE NATRIURETIC PEPTIDE,BNP 1030 pg/ml (0-100); INR 1.2 (0.9-1.2); PROTHROMBIN TIME 12.5 SEC (9.0-12.0); PTT,PARTIAL THROMBOPLSTIN TIME 30.1 SEC (22.0-34.0)
[2024-05-14] MEDS: Sodium Chloride 0.9% 10 ML Syringe FLUSH PRN (08:38)
[2024-05-14] MEDS: Sodium Chloride 0.9% 1,000 ML IV ONE ×3 (08:38→16:23)
[2024-05-14] MEDS: metroNIDAZOLE/Normal Saline 500 MG in Premix Bag 1 BAG IV ONE (08:44)
[2024-05-14] MEDS: Cefepime 2 GM Vial IVPUSH ONE (08:44)
[2024-05-14 08:47] LABS: AMORPHOUS SEDIMENT,URINE FEW /HPF (NOT SEEN); BACTERIA,URINE MANY /HPF (0-FEW/HPF); EPITHELIAL CELLS,URINE FEW /HPF (NOT SEEN); MUCUS,URINE FEW /LPF (NOT SEEN); RBC,URINE 20-30 /HPF (0-5); WBC,URINE PACKED /HPF (0-5/HPF)
[2024-05-14 09:02] LABS: BAND PERCENT MAN 3 %; LYMPHOCYTES PERCENT MAN 4 % (20-50); MONOCYTES PERCENT MAN 3 % (2-8); SEG NEUTROPHILS PERCENT MAN 90 % (42-75)
[2024-05-14] MEDS ORDERED: Albuterol 0.083% 2.5 MG/3 ML Neb Soln NEB PRN (12:16)
[2024-05-14] MEDS ORDERED: Docusate Sodium 100 MG Cap PO PRN (12:16)
[2024-05-14] MEDS ORDERED: Acetaminophen 325 MG Tab PO PRN (12:16)
[2024-05-14] MEDS ORDERED: Ondansetron 4 MG/2 ML SDV IVPUSH PRN (12:16)
[2024-05-14] MEDS ORDERED: oxyCODONE 5 MG Tab PO PRN (12:16)
[2024-05-14] MEDS: Citalopram 20 MG Tab PO SCH (13:26)
[2024-05-14] MEDS: Albuterol/Ipratropium 3.0-0.5 MG/3 ML Neb Soln NEB SCH (13:27)
[2024-05-14] MEDS: Warfarin 5 MG Tab PO SCH (13:27)
[2024-05-14] MEDS: Carvedilol 3.125 MG Tab PO SCH (13:27)
[2024-05-14] MEDS: Midodrine 2.5 MG Tab PO SCH (13:27)
[2024-05-14] MEDS ORDERED: Diltiazem IR 30 MG Tab PO SCH (14:00)
[2024-05-14] MEDS: HYDROmorphone 2 MG/ML Syringe IVPUSH PRN (14:36)
[2024-05-14] MEDS: Diltiazem 125 MG in Sodium Chloride 0.9% 100 ML IV SCH (15:37)
[2024-05-14] MEDS: metroNIDAZOLE/Normal Saline 500 MG in Premix Bag 1 BAG IV SCH (16:37)
[2024-05-14] MEDS: Sodium Chloride 0.9% 100 ML IV PRN (16:38)
[2024-05-14] MEDS: Dextrose 5%-0.9% NaCl 1,000 ML IV SCH (19:38)
[2024-05-14] MEDS: atorvaSTATin 10 MG Tab PO SCH (20:15)
[2024-05-14] MEDS: QUEtiapine 25 MG Tab PO SCH (20:15)
[2024-05-14] MEDS: Memantine 10 MG Tab PO SCH (20:15)
[2024-05-15 06:08] LABS: BASOPHILS PERCENT AUTO 0.1 % (0.0-1.0); EOSINOPHILS PERCENT AUTO 0.2 % (1.0-3.0); HEMATOCRIT 26.7 % (40.0-54.0); HEMOGLOBIN 8.1 g/dL (14.0-18.0); LYMPHOCYTES PERCENT AUTO 3.8 % (20.5-50.1); MEAN CORPUSCULAR HEMOGLOBIN 30.9 pg (27.0-34.0); MEAN CORPUSCULAR HGB CONC 30.3 g/dL (33.0-35.0); MEAN CORPUSCULAR VOLUME 101.9 fL (80-100); MONOCYTES PERCENT AUTO 4.3 % (2-8); PLATELET COUNT,PLT 212 10^3/uL (150-450); RED BLOOD CELL COUNT 2.62 10^6/uL (4.6-6.2); WHITE BLOOD CELL COUNT,WBC 18.9 10^3/uL (5.0-10.0)
[2024-05-15 06:19] LABS: NEUTROPHILS PERCENT AUTO 91.6 % (42.2-75.2)
[2024-05-15 06:24] LABS: ANION GAP 17.6 mEq/L (7-13); CALCIUM 8.6 mg/dL (8.5-10.1); CREATININE 3.03 mg/dL (0.70-1.30); EST CRCL DRUG DOSING (CG) 18.14 mL/min; POTASSIUM,K 4.6 mmol/L (3.5-5.1)
[2024-05-15] MEDS: Potassium Chloride 10 MEQ Tab.ER PO SCH (07:50)
[2024-05-15] MEDS: Cefepime 1 GM Vial IVPUSH SCH (08:50)
[2024-05-15] MEDS: Enoxaparin 30 MG/0.3 ML Syringe SUBCUT SCH (09:11)
[2024-05-15] MEDS: Multivitamin Tab PO SCH (09:11)
[2024-05-15] MEDS: Cyanocobalamin (Vitamin B12) 1,000 MCG Tab PO SCH (09:11)
[2024-05-15 12:51] VITALS: BP 120/58; PULSE 94
[2024-05-15] MEDS ORDERED: Warfarin 5 MG Tab PO SCH (13:22)
[2024-05-15] MEDS ORDERED: Naloxone 2 MG/2 ML Syringe IVPUSH PRN (16:31)
[2024-05-15] MEDS ORDERED: Morphine 10 MG/0.5 ML Oral Syringe SL PRN (16:31)
[2024-05-15] MEDS: Atropine 1% Ophth Soln 5 ML Bottle SL SCH (16:45)
[2024-05-15] MEDS: LORazepam 2 MG/ML SDV IVPUSH PRN (20:46)
[2024-05-16] MEDS: Atropine 1% Ophth Soln 5 ML Bottle SL SCH (08:59)
[2024-05-16] MEDS: Morphine 2 MG/ML SYRINGE IVPUSH PRN (12:33)
== END 2024-05-17 01:00 | disposition expired | DRG 871 ==
LOC: DL.ED 08:20 → EEVIPCON 08:20 → DL.MS 09:27
PROVIDERS: ADMIT Internal Medicine; ATTEND Internal Medicine
DX: A41.9 Sepsis, unspecified organism (principal); I50.23 Acute on chronic systolic (congestive) heart failure; J90 Pleural effusion, not elsewhere classified; I11.0 Hypertensive heart disease with heart failure; I50.9 Heart failure, unspecified; I13.0 Hypertensive heart and chronic kidney disease with heart failure and stage 1 through stage 4 chronic kidney disease, or unspecified chronic kidney disease; N17.9 Acute kidney failure, unspecified; N30.00 Acute cystitis without hematuria; E87.20 Acidosis, unspecified; I48.91 Unspecified atrial fibrillation; Z66 Do not resuscitate; R65.20 Severe sepsis without septic shock; F02.C0 Dementia in other diseases classified elsewhere, severe, without behavioral disturbance, psychotic disturbance, mood disturbance, and anxiety; Z88.6 Allergy status to analgesic agent; N40.1 Benign prostatic hyperplasia with lower urinary tract symptoms; Z96.619 Presence of unspecified artificial shoulder joint; Z96.659 Presence of unspecified artificial knee joint; M19.90 Unspecified osteoarthritis, unspecified site; H91.90 Unspecified hearing loss, unspecified ear; E78.00 Pure hypercholesterolemia, unspecified; N18.9 Chronic kidney disease, unspecified; N39.498 Other specified urinary incontinence; I27.20 Pulmonary hypertension, unspecified; G30.9 Alzheimer's disease, unspecified; I95.9 Hypotension, unspecified; G47.30 Sleep apnea, unspecified; D63.1 Anemia in chronic kidney disease; H54.7 Unspecified visual loss; Z88.0 Allergy status to penicillin; Z86.16 Personal history of COVID-19; Z88.2 Allergy status to sulfonamides; Z88.5 Allergy status to narcotic agent; Z88.7 Allergy status to serum and vaccine; Z79.01 Long term (current) use of anticoagulants; Z88.1 Allergy status to other antibiotic agents; Z98.49 Cataract extraction status, unspecified eye; Z88.8 Allergy status to other drugs, medicaments and biological substances; Z98.890 Other specified postprocedural states; Z79.899 Other long term (current) drug therapy
CPT/HCPCS: 36415; 51702; 71045; 80048; 80053; 80202; 81001; 82947; 83605; 83690; 83735; 83880; 84145; 85025; 85610; 85730; 87040; 87086; 87804; 93005; 93010; 96365; 96368; 96375; 99285; 99285-25; A9270-GY; J0692; J1170; J1836; J2060; J2270; J3370; J3490; J7030; J7042; J7050; U0002